=== PATIENT | female | born 1955 | race Caucasian/White ===

== ENCOUNTER 2023-09-27 18:36 | Emergency (ER) | payer OTHER, SELFPAY ==
[2023-09-27 18:42] VITALS: BP 116/69
--- NOTE | 2023-09-27 21:27 | ED.GENMED ---
History of Present Illness
General
Chief Complaint: Fall
Source: patient, spouse and other (Family friend/neighbor)
Exam Limitations: dementia
Time Seen by Provider: 09/27/23 18:57
Nursing documentation reviewed up to this point in time: agreed with
Travel History
Have you had any contact with someone who has COVID-19?: No
Do you have any symptoms of coronavirus? Fever > 100 degrees, chills, cough, shortness of breath, sore throat, loss of taste or smell, muscle aches, or headache?: No
History of Present Illness
History of Present Illness:
68-year-old female with a history of diabetes and dementia presents from home with her with whom she lives for evaluation after fall. Patient is a very poor historian with limited insight due to her dementia and cannot provide meaningful
history. She is occasionally aggressive and tangential. Her says that this is her baseline. Apparently they were going on a walk today and patient lost her balance and fell off the curb. She apparently struck the right side of her face
on the ground. There was no reported loss of consciousness. went to the door of a next-door neighbor as he has a history of stroke and was unable to help her up. Neighbor called EMS to bring patient to the hospital. Patient denies any
specific complaints on review of systems including headache, neck pain, chest pain, back pain, pain in her extremities. She is ambulatory in the ED. She is not on any blood thinners.
Review of Systems
Review of Systems
Unable to obtain full review of systems at this time due to: dementia
All Other Systems: Not applicable
Phy Exam
Physical Exam
Physical Exam:
General: Awake, alert, oriented x2; occasionally verbally aggressive/confrontational which is apparently her baseline; no acute distress
Head: Normocephalic, patient has some very mild ecchymosis in the right maxillary region; no cephalhematoma
Eyes: Conjunctiva normal, EOMI, pupils equal round reactive to light bilaterally
Throat: Airway intact, handling secretions, mouth atraumatic
Neck: Trachea midline, no cervical spine tenderness
Back: No tenderness in the thoracic or lumbar spine
Lungs: Breathing comfortably not in distress
Heart: Regular rate
Abd: Soft, non distended, nontender
Neuro: Cranial nerves grossly intact, speech fluid, ambulatory with steady gait
Skin: Minor abrasion to the dorsum of the right hand as well as to the right elbow
Extremities: Minor abrasions as above but no significant ecchymosis or swelling in the extremities and no deformity; she allows for full active range of motion in all joints of the upper and lower extremities without apparent discomfort and is
ambulatory, weightbearing in the emergency room without pain; she has good pulses in all extremities
Scores
Heart Failure Risk
Heart Failure Risk Score: Not Applicable
Heart Score for Chest Pain Patients
STEMI patient?: Not applicable
Withdrawal Assessment of Alcohol
Withdrawal Assessment Completed?: Not applicable
Course
Orders/Labs/Results
Orders:
Orders
09/27/23 19:25
Tetanus/Diphth/Acelpertussis [Adacel] 0.5 ml IM .ONCE ONE
Vital Signs
Initial and Last Documented VS:
Initial Vital Signs
Temp Pulse Resp BP Pulse Ox
36.8 C 63 16 116/69 98
09/27/23 18:42 09/27/23 18:42 09/27/23 18:42 09/27/23 18:42 09/27/23 18:42
Last Documented Vital Signs
Temp Pulse Resp BP Pulse Ox
36.8 C 63 16 116/69 98
09/27/23 18:42 09/27/23 18:42 09/27/23 18:42 09/27/23 18:42 09/27/23 18:42
MDM/Problems Addressed
Differential Diagnosis Includes:
Facial fracture, facial contusion
MDM/Problems Addressed:
68-year-old female with history of dementia presents after mechanical trip and fall today. No loss of consciousness and behaving at her baseline per . She has some bruising on the right side of her face and abrasion to the right hand and
elbow. No other signs of serious trauma. Unsure of last tetanus. Initial plan was for CT head and cervical spine to rule out any facial fracture or serious injuries given her age as well as to update her tetanus shot. No clear indication for
x-ray of the elbow despite minor abrasion she has full range of motion and no reproducible tenderness. Unfortunately patient became rather agitated and refused to go for imaging and refused tetanus shot. I had a long discussion with the
�patient has poor insight and in my judgment does not have decision-making capacity to refuse imaging and request discharge. I spoke to the and offered to provide some sedation to the patient to facilitate imaging but he does not
feel this is necessary. He says that this is normal behavior for her. He feels comfortable foregoing imaging at this point and taking patient home and keeping a close eye on her and if anything changes he will call the medics to bring her back to
the hospital. Using shared decision making patient was discharged without imaging.
Chronic conditions affecting care:
Dementia
*Pulse Oximetry
Patient hypoxic: no
*Critical Care Note
Total Time (30-74mins, 75-104mins- exclusive of procedures): Not Applicable
Data Reviewed
Source: patient, family and other (Neighbor/friend)
Prescriptions/Medications Considered But Not Given:
Considered sedation to facilitate CT as above
Further Testing Considered But Not Given:
Considered CT head and cervical spine as above
Patient Management
Escalation/DeEscalation of care consider admission/obs:
Discharge using shared decision making as above
ED Attending Note
-
Portions of this chart may have been created with voice recognition software.� Occasional wrong word or��sound alike� substitutions may have occurred due to the inherent limitations of voice recognition software.
Discharge Plan
Departure
Patient Disposition: Home (Routine Discharge)
Date of Disposition: 09/27/23
Time of Disposition: 20:35
Patient with high blood pressure during this ER visit?: No
Discharge Problem:
Contusion of face, Abrasion
Instructions: Contusion (DC), Skin Abrasions (DC)
Referrals:
Elfego Cadena DO [Family Provider] -
Activity Restrictions/Additional Instructions:
Thank you for visiting the Emergency Department at [facility].
1. Please schedule a follow up appointment as directed. Call first thing tomorrow morning to make an appointment.
2. If indicated, please take your medications as instructed and indicated on discharge paperwork.
3. If any of your symptoms do not improve, or persist, or become more severe within 6-12 hours, please return to the emergency department for further care.
4. Please return to the emergency department if you develop a headache, neck pain/stiffness, fever greater than 100.4F, chest pain, shortness of breath, persistent nausea, vomiting, slurred speech, difficulty walking, numbness/tingling, weakness,
signs of infection or any other symptoms that are worrisome to you.
Please call [phone] if you have any questions.
Interventions
Interventions:
*Risk Screen - Suicide Last Done: 09/27/23 19:03
*Neglect/Abuse Screening Last Done: 09/27/23 19:03
*Nursing Disposition Last Done: 09/27/23 20:38
ED-Musculoskeletal Assessment Last Done: 09/27/23 19:03
ED- Neurological Assessment Last Done: 09/27/23 19:03
ED-Skin Assessment Last Done: 09/27/23 19:03
Discharge Date and Time
Discharge Date/Time: 09/27/23 20:39
Print Language: NIUEAN
== END 2023-09-27 20:39 | disposition home or self-care (01) ==
LOC: EMR 18:36
PROVIDERS: EMERGENCY PHYSICIAN Emergency Medicine; FAMILY PHYSICIAN Family Medicine
DX: S00.83XA Contusion of other part of head, initial encounter (principal); S60.511A Abrasion of right hand, initial encounter; S50.311A Abrasion of right elbow, initial encounter; W19.XXXA Unspecified fall, initial encounter; F03.90 Unspecified dementia, unspecified severity, without behavioral disturbance, psychotic disturbance, mood disturbance, and anxiety; E11.9 Type 2 diabetes mellitus without complications; Z86.73 Personal history of transient ischemic attack (TIA), and cerebral infarction without residual deficits
CPT/HCPCS: 99282; 90715

== ENCOUNTER 2023-10-18 09:30 | Inpatient (IN) | payer OTHER, SELFPAY ==
[2023-10-16 11:51] VITALS: BP 117/51
[2023-10-16] MEDS: HALDOL 2 MG IM (12:40)
[2023-10-16] MEDS: ATIVAN 1 MG IM (12:41)
[2023-10-16 13:41] LABS: % Basophils 0.3 % (0-2); % Eosinophils 0.2 % (0-6); % Immature Granulocytes 0.8 % (0-0.5); % Lymphocytes 24.3 % (20.5-51.1); % Monocytes 7.5 % (1.7-9.3); % Neutrophils 66.9 % (42.2-75.2); Absolute Immature Granulocytes 0.1 10^3/uL (0-0.05); Absolute Lymphocytes 2.4 10^3/uL (1.2-3.4); Absolute Monocytes 0.7 10^3/uL (0.1-0.6); Absolute Neutrophils 6.5 10^3/uL (1.4-6.5); Hematocrit 39.6 % (37.0-47.0); Hemoglobin 13.9 g/dL (12.0-16.0); Mean Corp Hgb Conc. 35.1 g/dL (33.0-37.0); Mean Corpuscular Hgb 30.2 pg (27.0-31.0); Mean Corpuscular Volume 86.1 fL (81.0-99.0); Mean Platelet Volume 10.6 fL (7.4-10.4); Nucleated Red Blood Cells % 0 %; Platelet Count 240 10^3/uL (130-400); Red Cell Dist. Width 13.5 % (11.5-14.5); White Blood Cell Count 9.8 10^3/uL (4.8-10.8)
[2023-10-16 13:51] LABS: ALT (SGPT) 25 U/L (0-35); AST (SGOT) 35 U/L (14-36); Albumin 3.9 g/dl (3.5-5.0); Alkaline Phosphatase 74 U/L (38-126); Blood Urea Nitrogen 20 mg/dl (7-17); Calcium 9.9 mg/dl (8.4-10.2); Carbon Dioxide 27 mmol/L (22-30); Chloride 101 mmol/L (98-107); Glucose 144 mg/dl (70-99); Potassium 3.6 mmol/L (3.5-5.1); Sodium 137 mmol/L (135-145); Total Protein 6.6 g/dl (6.3-8.2)
--- NOTE | 2023-10-16 14:16 | CM ---
Cm was consulted regarding patient presenting to emergency room after being found wandering outside her home. CARRIE was out to see patient in her home. CM spoke with Isa Womack . She updated this CM stating that they were out to the
home due to concerns of patient's wander and cognitive decline. Patient's who is her primary care advocate is also suffering from cognitive decline. Isa reports concerns of medication mismanagement, and self neglect. Patient is incontinent
and reports that he only occasionally checks her diaper. could not report when the patient has had a bath or shower. Patient appears well dressed, but diaper is saturated.
CM went to speak with and patient in room. Patient's became increasingly agitated with patient as she was attempting to get out of the bed. Patient's was yelling at patient. Patient was argumentative with this CM and her
. She was able to be redirected from her attempts to get out of the bed.
CM will await further work up.
--- NOTE | 2023-10-16 14:27 | ED.GENMED ---
History of Present Illness
General
Chief Complaint: Social Service Referral
Source: patient and spouse
Exam Limitations: dementia
Time Seen by Provider: 10/16/23 11:50
Nursing documentation reviewed up to this point in time: agreed with
Travel History
Have you had any contact with someone who has COVID-19?: Unable to Answer
Do you have any symptoms of coronavirus? Fever > 100 degrees, chills, cough, shortness of breath, sore throat, loss of taste or smell, muscle aches, or headache?: Unable to Answer
History of Present Illness
History of Present Illness:
68-year-old female past medical history of dementia and IDDM presenting to the emergency department today after multiple falls at home. She lives with her who also was disabled. She has been dealing with dementia for many years and has
very poor short-term memory. She had a fall 3 weeks ago came to the ER refused assessment at that time and was sent home with the she has had a fall since then as well as today had multiple near falls and was sent to the ER for assessment.
She currently denies any symptoms but has no specific insight and has no memory of the events of today.
Review of Systems
Review of Systems
Allergies reviewed?: Yes
All Other Systems: ROS reviewed and negative except as documented in HPI and ROS
Phy Exam
Physical Exam
Physical Exam:
GENERAL: Alert , in no apparent distress
EYE: pupils equal and reactive
NECK: Supple, no significant adenopathy.
ENT: o/p clr, mmm.
CARDIAC: Regular rate and rhythm .
LUNGS: Clear breath sounds bilaterally, no acute respiratory distress, no wheezes/rales/rhonchi
ABDOMEN: Soft, without focal tenderness, no r/g, no cvat
NEUROLOGICAL: Alert not oriented to person place or time no focal neuro deficits moving extremities
SKIN: Warm and dry, skin intact.
MUSCULOSKELETAL: No edema, well perfused.
PSYCH: Normal and appropriate interaction.
Course
Orders/Labs/Results
Orders:
Orders
10/16/23 11:50
CT Cervical Spine W/o Iv Contr Urgent
Comment:
Reason For Exam: fall neck pain
CT Head W/o Iv Contrast Urgent
Comment:
Reason For Exam: fall hit head
10/16/23 11:51
Urinalysis Reflex To Culture Urgent
10/16/23 12:04
Case Management Consult ONCE
Case Management Consult: Discharge Planning
10/16/23 12:26
Haloperidol Lactate [Haldol] 2 mg IM NOW STA
Lorazepam [Ativan] 1 mg IM NOW STA
10/16/23 13:33
CBC/With Diff [Complete Blood Count/With Diff] Urgent
CMP [Comprehensive Metabolic Panel] Urgent
Abnormal Lab Results
10/16/23
13:33
MPV 10.6 H fL
(7.4-10.4)
Abs Immat Gran (auto) 0.1 H 10^3/uL
(0-0.05)
Absolute Monos (auto) 0.7 H 10^3/uL
(0.1-0.6)
Immature Gran % 0.8 H %
(0-0.5)
BUN 20 H mg/dl
(7-17)
Creatinine 1.2 H mg/dL
(0.6-1.0)
Glucose 144 H mg/dl
(70-99)
10/16/23 13:33
10/16/23 13:33
Vital Signs
Initial and Last Documented VS:
Initial Vital Signs
Temp Pulse Resp BP Pulse Ox
96.8 F L 71 18 117/51 96
10/16/23 11:51 10/16/23 11:51 10/16/23 11:51 10/16/23 11:51 10/16/23 11:51
Last Documented Vital Signs
Temp Pulse Resp BP Pulse Ox
96.8 F L 71 18 117/51 96
10/16/23 11:51 10/16/23 11:51 10/16/23 11:51 10/16/23 11:51 10/16/23 11:51
MDM/Problems Addressed
MDM/Problems Addressed:
68-year-old female presenting to the emergency today with concerns after multiple falls over the past few weeks. Has bruising to her face but denies any current symptoms at this time. Patient initially refusing treatment but patient does not have
capacity due to her advanced dementia concern this patient was given Haldol and Ativan and CT labs were obtained. CT scan showing potential chronic finding for previous stroke to the left side frontal lobe no emergent or acute findings labs without
acute abnormalities. Further discussion with the and does not feel safe with patient going home considering her dementia frequent falling recently plan to admit for potential placement assessment.
*Critical Care Note
Total Time (30-74mins, 75-104mins- exclusive of procedures): Not Applicable
ED Attending Note
-
Portions of this chart may have been created with voice recognition software.� Occasional wrong word or��sound alike� substitutions may have occurred due to the inherent limitations of voice recognition software.
Discharge Plan
Departure
Patient Disposition: Admit
Date of Disposition: 10/16/23
Time of Disposition: 17:07
Admit to: Med/Surg
Admit to doctor: Stephon
Presentation/result/management discussed w/ accepting MD/DO: Hospitalist
Patient with high blood pressure during this ER visit?: No
Condition: Good
Covid-19: Not Applicable
Discharge Problem:
Ambulatory dysfunction, Left frontal lobe lesion
Referrals:
UNKNOWN - PT DOES,NOT KNOW [Family Provider] -
Interventions
Interventions:
*Risk Screen - Suicide Last Done: 10/16/23 11:46
*General Assessment Last Done: 10/16/23 11:46
*Neglect/Abuse Screening Last Done: 10/16/23 11:46
ED- Fall Risk Assessment Last Done: 10/16/23 11:57
*ED COVID-19 Vaccine History Last Done: 10/16/23 11:46
ED-Psychological Assessment Last Done: 10/16/23 11:54
Discharge Date and Time
Print Language: HUNGARIAN
--- NOTE | 2023-10-16 15:06 | CM ---
Addendum entered by Nelsy Foy RN 10/16/23 15:25:
CM was updated by ED PA that patient will be admitted. Patient's remains undecided on discharge plan. CM advised patient my need STR. Patient's understands and is relieved that patient is being admitted.
CM updated Isa at aging.
Original Note:
CM spoke with patient's regarding placement. Patient's was tearful and expressed that he feel overwhelmed with her care and his own. He was confused regarding the care that patient is receiving in the home. He stated that he was
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
Patient's stated that he wanted to think about placement and was asking if she could be placed in [place]. CM advised that may be a long-term plan, but patient may need SNF prior to establishing lobsterman placement options.
CM will return to discuss.
--- NOTE | 2023-10-16 19:02 | HPS.HSE ---
Family Physician
-
Family Physician: NOT KNOW UNKNOWN - PT DOES
Chief Complaint
-
Multiple Falls at home
History of Present Illness
68-year-old female past medical history of dementia and IDDM presented to the emergency department today after multiple falls at home. Patient was a poor historian so much of the history was obtained from the ER provider note. Patient lives with her
who also was disabled. Patient had a fall 3 weeks ago came to the ER refused assessment at that time and was sent home with her she has had a fall since then as well as today had multiple near falls and was sent to the ER for
assessment. She currently denied any symptoms but has no specific insight and has no memory of the events of today.
Medical History
Past Medical History
Past Medical History: Reports Other (As per HPI above)
Past Surgical History: Reports Other (Patient unable to say due to dementia)
Additional Past Surgical History:
Patient unable to say
Social History
Unable to obtain full social history at this time due to: Dementia
Family History
Family History: Not pertinent
Allergies / Home Medications
Allergies reflects when Allergies were last updated in [facility].
Home Medications with original date entered in [facility]
Allergy/Medication List:
Allergies
Allergy/AdvReac Type Severity Reaction Status Date / Time
No Known Allergies Allergy Unverified 09/27/23 18:41
Home Medications
levothyroxine 75 mcg tablet 75 mcg PO DAILY 10/16/23
metformin 500 mg tablet 500 mg PO BIDWMEAL 10/16/23
Review of Systems
-
Unable to obtain full review of systems at this time due to: Dementia
Physical Exam
Vital Signs
Vital Signs
Temp Pulse Resp BP Pulse Ox
96.8 F L 71 18 117/51 96
10/16/23 11:51 10/16/23 11:51 10/16/23 11:51 10/16/23 11:51 10/16/23 11:51
Physical Exam
General: No Apparent Distress
HEENT: NormoCephalic and Moist mucous membranes
Respiratory: Clear
Cardiac: S1/S2 and Regular Rhythm
GI: Soft, Non Tender and Normal Bowel Sounds
Musculoskeletal: No Cyanosis and No Edema
Skin: Warm and Dry
Neuro: Awake, Alert and Other (Spontaneously moves all extremities. PERRL. Unable to cooperate with a full neurological exam.)
Psych: Calm, Confused and Apparent Dementia
Laboratory Results
-
10/16/23 13:33
10/16/23 13:33
Laboratory Results
Total Bilirubin 1.0 mg/dl (0.2-1.3) 10/16/23 13:33
AST 35 U/L (14-36) 10/16/23 13:33
ALT 25 U/L (0-35) 10/16/23 13:33
Alkaline Phosphatase 74 U/L (38-126) 10/16/23 13:33
Impression/Plan
-
Assessment/Plan
Multiple Falls at Home
-Check Vitamin B12, TSH
-Orthostatic vital signs
-Echocardiogram
-Telemetry
-CT Head noted, rule out acute stroke with Brain MRI
Elevated Creatinine -- VERONIKA vs. CKD
-IV fluids Normal Saline 75 cc/hr
-Bladder scans
Type 2 Diabetes Mellitus
-Hold Metformin with elevated creatinine
-Accuchecks and Insulin Sliding Scale
Hyperlipidemia
-No home meds listed
Dementia
-Speech consult
Hypothyroidism
-Continue Levothyroxine
[2023-10-16 19:03] VITALS: BP 136/59
[2023-10-16 21:06] VITALS: BP 102/54
[2023-10-16 21:29] VITALS: BP 118/54
[2023-10-16] MEDS: NSS 1000 IV (22:29)
[2023-10-16] MEDS: HEPARIN 5000 UNITS SC (22:29)
[2023-10-16 23:11] LABS: Troponin I 0.012 ng/ml
[2023-10-17] VITALS: BP 110/52
[2023-10-17 04:30] VITALS: BP 129/61
[2023-10-17 04:30] LABS: % Basophils 0.6 % (0-2); % Eosinophils 1.2 % (0-6); % Immature Granulocytes 0.5 % (0-0.5); % Lymphocytes 43.1 % (20.5-51.1); % Neutrophils 44.6 % (42.2-75.2); Absolute Basophils 0.1 10^3/uL (0-0.2); Absolute Eosinophils 0.1 10^3/uL (0-0.7); Absolute Lymphocytes 3.6 10^3/uL (1.2-3.4); Absolute Monocytes 0.8 10^3/uL (0.1-0.6); Absolute Neutrophils 3.7 10^3/uL (1.4-6.5); Hematocrit 38.5 % (37.0-47.0); Hemoglobin 13.5 g/dL (12.0-16.0); Mean Corp Hgb Conc. 35.1 g/dL (33.0-37.0); Mean Corpuscular Hgb 30.3 pg (27.0-31.0); Mean Corpuscular Volume 86.5 fL (81.0-99.0); Nucleated Red Blood Cells % 0 %; Platelet Count 228 10^3/uL (130-400); Red Blood Cell Count 4.45 10^6/uL (4.20-5.40); Red Cell Dist. Width 13.6 % (11.5-14.5); White Blood Cell Count 8.3 10^3/uL (4.8-10.8)
[2023-10-17 04:38] LABS: Urine Albumin Trace (Neg - Trace); Urine Bilirubin 1+ (Negative); Urine Character Slightly Cloudy (Clear); Urine Color Yellow; Urine Glucose Negative (Negative); Urine Ketone 1+ (Negative); Urine Leukocyte Negative (Negative); Urine Nitrite Negative (Negative); Urine Occult Blood Negative (Negative); Urine Specific Gravity 1.025 (<1.030); Urine Urobilinogen 1+ (Neg - 1+)
[2023-10-17 04:45] LABS: Blood Urea Nitrogen 17 mg/dl (7-17); Calcium 9.3 mg/dl (8.4-10.2); Carbon Dioxide 27 mmol/L (22-30); Chloride 105 mmol/L (98-107); Glucose 133 mg/dl (70-99); Potassium 3.1 mmol/L (3.5-5.1); Sodium 137 mmol/L (135-145); eGFR > 60.00
[2023-10-17 04:57] LABS: Troponin I < 0.012 ng/ml
--- NOTE | 2023-10-17 05:04 | EDRN ---
Pt. has been in sinus bradycardia w/ HR ranging from 40-52 while sleeping. When awake, pt. is asymptomatic w/ HR 50s-60s. Admitting team is aware, will continue to monitor.
[2023-10-17 05:44] LABS: TSH 8.74 uIU/ml (0.47-4.68)
[2023-10-17] MEDS: SYNTHROID PO (05:52)
[2023-10-17 06:03] LABS: Vitamin B12 840 pg/ml (239-931)
[2023-10-17] MEDS: HEPARIN SC (08:20)
[2023-10-17] MEDS: KCL ELIXIR 40 MEQ PO (10:38)
--- NOTE | 2023-10-17 10:40 | CM ---
Addendum entered by Nelsy Foy RN 10/17/23 11:35:
VIOLETA updated Isa at [facility]. SHe is requesting discharge documents be faxed to her at [phone].
Addendum entered by Nelsy Foy RN 10/17/23 11:11:
[facility] has accepted.
Addendum entered by Nelsy Foy RN 10/17/23 10:41:
CM left message for to discuss discharge planning.
Original Note:
CM reviewed medical records. CM requested PT evaluation. CM sent preliminary referral to [facility] for placement. CM awaiting acceptance.
[2023-10-17 10:56] LABS: Troponin I < 0.012 ng/ml
--- NOTE | 2023-10-17 11:31 | PTOTSP ---
ST Acute Care Evaluation
Pt currently presents with oral, pharyngeal, and esophageal phases that are WFL for all PO intake. No overt s/s of penetration or aspiration observed at bedside. Pt would benefit from PCT assistance for tray set-up and verbal encouragement for PO
intake. Pt would also benefit from a nutrition consult due to reported poor PO intake and significant recent weight loss.
Pt also presents with at least a moderate cognitive linguistic impairment in the setting of Alzheimer's dementia. Pt can answer simple questions and follow simple directions. Pt can occasionally express simple ideas in short phrases, but more often
than not, her verbalizations lack content and are difficult to follow without context. Pt is only oriented to self at this time, and she could not provide her .
Recommendations:
- Continue with REGULAR SOLIDS and THIN LIQUIDS with meds as tolerated.
- Tray set-up and verbal encouragement for all PO intake.
- General aspiration precautions: Only feed when fully awake/alert, HOB upright for all PO intake, encourage slow intake.
- TOLL BRIDGE ATTENDANT will f/u 1x to ensure diet tolerance.
- Recommending nutrition consult given poor PO intake and recent 15lb weight loss.
- TOLL BRIDGE ATTENDANT will continue to follow for further cognitive linguistic assessment/intervention.
- Given pt's current cognitive linguistic presentation as well as pt's 's disability, SNF to LTC is recommended upon discharge for both of their safety.
[2023-10-17 11:41] VITALS: BP 127/89
[2023-10-17] MEDS: ATIVAN 0.25 MG IV (12:25)
[2023-10-17] MEDS: NSS (PRESERVATIVE FREE) 0.125 ML IV (12:25)
--- NOTE | 2023-10-17 13:00 | CM ---
Cm spoke with patient's who is agreeable to [facility] when patient is medically cleared. Patient will need authorization
[facility] Anderson NPI's
[id number]
Dr. Kuhn
[id number]
[2023-10-17] MEDS: ZYPREXA 2.5 MG IM (14:43)
[2023-10-17] MEDS: STERILE WATER FOR INJECTION 2.10000000000000009 ML IM (14:44)
--- NOTE | 2023-10-17 16:08 | W.PN.HOSP.TC ---
Today's Communication/Plan
-
Follow-up Brain MRI
PT/OT
Placement
Assessment / Plan
Assessment / Plan
Physical Exam
General: No Apparent Distress
HEENT: Normocephalic and Moist mucous membranes
Respiratory: Clear
Cardiac: S1/S2 and Regular Rhythm
GI: Soft, Non Tender and Normal Bowel Sounds
Musculoskeletal: No Cyanosis and No Edema
Skin: Warm and Dry
Neuro: Awake, Alert and Other (Spontaneously moves all extremities. PERRL. Unable to cooperate with a full neurological exam.)
Psych: Calm, Confused and Apparent Dementia

Assessment/Plan
Multiple Falls at Home
-Vitamin B12 WNL
-TSH 8.74
-Orthostatic vital signs when feasible
-Echocardiogram unremarkable
-Telemetry
-CT Head noted
-Follow-up brain MRI
Elevated Creatinine -- VERONIKA vs. CKD -- RESOLVED
-Completed IV fluids Normal Saline 75 cc/hr
-Bladder scans
Type 2 Diabetes Mellitus
-Hold Metformin with elevated creatinine on admission
-Accuchecks and Insulin Sliding Scale
Hyperlipidemia
-No home meds listed
Dementia
-Speech consult
Hypothyroidism
-Continue Levothyroxine
DVT Prophylaxis: Heparin SUBQ
Anticipated Discharge: > 48 hours
Subjective/Interval History
-
Date of Service: October 17, 2023
Patient was seen and examined. She was on and off agitated at times.
Objective Data
-
Labs:
Laboratory Results
10/17/23
04:22
WBC 8.3
Hgb 13.5
Hct 38.5
Plt Count 228
Sodium 137
Potassium 3.1 L
Chloride 105
Carbon Dioxide 27
BUN 17
Creatinine 1.0
Glucose 133 H
Calcium 9.3
Vital Signs:
Vital Signs
Temp Pulse Resp BP Pulse Ox
97.7 F 57 15 127/89 100
10/17/23 11:41 10/17/23 11:41 10/17/23 11:41 10/17/23 11:41 10/17/23 11:41
--- NOTE | 2023-10-17 16:14 | PTCARENOTE ---
Assumed care at 0700. Oriented to self only. Confused conversation at times. Does not follow all commands. x1 dose of Ativan given @ 12:25 as MRI premedication, then MRI delayed. Patient required x1 dose IM Zyprexa at 1443 d/t unable to be directed,
resisting staff, high risk for injury to self. Patient went to MRI at ~1500. After patient returned from MRI, restless but redirectable. ED no delay report tubed to [address].
[2023-10-17 17:15] VITALS: BP 138/64
[2023-10-17 17:28] LABS: Glucose - Point of Care 173 mg/dl (70-99)
[2023-10-17 19:59] VITALS: BP 121/51
[2023-10-17] MEDS: HEPARIN 5000 UNITS SC (20:15)
[2023-10-17 23:52] LABS: Glucose - Point of Care 178 mg/dl (70-99)
[2023-10-18] MEDS: DESENEX/MITRAZOL/ZEASORB 1 APPLIC TOPICAL ×3 (05:24→22:24)
[2023-10-18] MEDS: SYNTHROID 75 MCG PO (05:25)
[2023-10-18 05:35] VITALS: BP 140/71; BP 142/64; PULSE 89; PULSE 92
--- NOTE | 2023-10-18 05:52 | PTCARENOTE ---
Pt AAOX self only.Noncomplaint with care at times,agitated when trying to get things done,refusing care. Pt on bed alarm, trying to get up, pulling on telemetry leads. Unable to put scds on pt, as pt high fall risk & constantly getting up. 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
Marsha made aware of pt refusing care.Plan of care continued with pt.
[2023-10-18 07:51] LABS: % Basophils 0.6 % (0-2); % Eosinophils 1.2 % (0-6); % Immature Granulocytes 0.6 % (0-0.5); % Lymphocytes 43.6 % (20.5-51.1); % Monocytes 9.8 % (1.7-9.3); % Neutrophils 44.2 % (42.2-75.2); Absolute Eosinophils 0.1 10^3/uL (0-0.7); Absolute Monocytes 0.7 10^3/uL (0.1-0.6); Mean Corp Hgb Conc. 33.3 g/dL (33.0-37.0); Mean Corpuscular Volume 90.1 fL (81.0-99.0); Mean Platelet Volume 11.2 fL (7.4-10.4); Nucleated Red Blood Cells % 0 %; Platelet Count 227 10^3/uL (130-400); Red Blood Cell Count 4.66 10^6/uL (4.20-5.40); Red Cell Dist. Width 13.7 % (11.5-14.5); White Blood Cell Count 6.9 10^3/uL (4.8-10.8)
[2023-10-18 08:06] LABS: Glucose - Point of Care 143 mg/dl (70-99)
[2023-10-18] MEDS: HEPARIN 5000 UNITS SC ×2 (08:21→22:27)
[2023-10-18 08:35] LABS: Blood Urea Nitrogen 16 mg/dl (7-17); Calcium 9.6 mg/dl (8.4-10.2); Carbon Dioxide 30 mmol/L (22-30); Chloride 102 mmol/L (98-107); Glucose 142 mg/dl (70-99); Potassium 4.1 mmol/L (3.5-5.1); Sodium 137 mmol/L (135-145); eGFR > 60.00
[2023-10-18 08:43] VITALS: BP 129/58
--- NOTE | 2023-10-18 09:32 | W.PN.HOSP.TC ---
Today's Communication/Plan
-
Recent bleeding noted on MRI brain without contrast
Consulted neurosurgery
MRI Brain WITH contrast ordered to check for any underlying enhancing lesion
Assessment / Plan
Assessment / Plan
Physical Exam
General: No Apparent Distress
HEENT: Normocephalic and Moist mucous membranes
Respiratory: Clear
Cardiac: S1/S2 and Regular Rhythm
GI: Soft, Non Tender and Normal Bowel Sounds
Musculoskeletal: No Cyanosis and No Edema
Skin: Warm and Dry
Neuro: Awake, Alert and Other (Spontaneously moves all extremities. PERRL. Unable to cooperate with a full neurological exam.)
Psych: Calm, Confused and Apparent Dementia

Assessment/Plan
Multiple Falls at Home
Left frontal lesion with surrounding gradient-echo hypointensity suggestive of subacute hemorrhage
Concern for previous intracerebral hemorrhage
-Vitamin B12 WNL
-TSH 8.74
-Orthostatic vital signs when feasible
-Echocardiogram unremarkable
-Telemetry
-CT Head noted
-MRI brain (without contrast) results noted
-Neurosurgery consulted, recommendations appreciated
-Ordered MRI brain WITH contrast to check for any underlying enhancing lesion
-Follow-up MRI likely in 6 to 8 weeks to ensure that once the blood is cleared, there is no occult lesion underneath this hemorrhage --> as per neurosurgery
-Okay for chemical DVT prophylaxis.
-However HOLD on any therapeutic anticoagulant or antiplatelet medications
Agitation
-Patient has received Zyprexa
Elevated Creatinine -- VERONIKA vs. CKD -- RESOLVED
-Completed IV fluids Normal Saline 75 cc/hr
-Bladder scans
Type 2 Diabetes Mellitus
-Hold Metformin with elevated creatinine on admission
-Accuchecks and Insulin Sliding Scale
Hyperlipidemia
-No home meds listed
Dementia
-Speech consult
Hypothyroidism
-Continue Levothyroxine
DVT Prophylaxis: Lovenox
Anticipated Discharge: > 48 hours
Subjective/Interval History
-
Date of Service: October 18, 2023
Patient was seen and examined. She denied any new symptoms or complaints. She was restless, agitated at times however.
Objective Data
-
Labs:
Laboratory Results
10/18/23
07:11
WBC 6.9
Hgb 14.0
Hct 42.0
Plt Count 227
Sodium 137
Potassium 4.1 D
Chloride 102
Carbon Dioxide 30
BUN 16
Creatinine 1.0
Glucose 142 H
Calcium 9.6
Vital Signs:
Vital Signs
Temp Pulse Resp BP Pulse Ox
97.6 F 59 20 129/58 99
10/18/23 08:43 10/18/23 08:43 10/18/23 08:43 10/18/23 08:43 10/18/23 08:43
I&O
10/17/23 10/18/23 10/19/23
06:59 06:59 06:59
Intake Total 240 / 240
Balance 240 / 240
--- NOTE | 2023-10-18 10:57 | PTCARENOTE ---
Pt placed in hilda-chair at nurses station due to repeated attempts to get out of bed.
--- NOTE | 2023-10-18 11:26 | CM ---
Addendum entered by Lupe Sin 10/18/23 12:10:
Spoke with spouse bedside.
While discussing home situation, he stated he also has some difficulties with memory.
Explained that patient may be difficult to place due to the medsitter being in place and will expand search.
Spouse unsure if he will be able to manage patient at home.
Discussed memory care, alf care and skilled rehab, however spouse admitted he probablyy wont remember.
Spouse agreeable to expanding bed search.
Spouse stated he just had a meeting with Isa from [facility].
TC back from [facility], she spoke with spouse and also has concerns.
There is no other family involved, a neighbor assists but is not home.
Cm will update Isa with d/c plans once bed found.
Addendum entered by Lupe Sin 10/18/23 11:41:
TC to Isa Womack from [facility], left .
Original Note:
Patient seen bedside.
patient in hilda chair with med-sitter.
Patient for skilled placement and was accepted by [facility].
TC to [facility] to discuss, await TCB.
Plan: skilled placement when bed available
[2023-10-18 12:35] LABS: Glucose - Point of Care 219 mg/dl (70-99)
[2023-10-18 15:33] VITALS: BP 128/61
--- NOTE | 2023-10-18 17:15 | CON.NS ---
Consultation
-
Date/Time Consultation Performed: 17:15; 10/18/2023
Performing Provider: Nir
Chief Complaint
History of Present Illness
This is a neurosurgical consultation on a 68-year-old female that presented on 10/16/2023 after multiple falls at home. Patient has a past medical history of dementia, and diabetes. It was reported that the patient is a poor historian, and lives
with her , who is also disabled. Patient also had a prior fall 3 weeks ago, and presented to the emergency room on 09/27/2023. At that time, it is noted that she refused assessment and was sent home with her . Patient was admitted for
the diagnosis of multiple falls, and subsequently workup was initiated. She had a brain MRI that was performed, which demonstrates left frontal lesion, consistent with likely subacute hematoma. Neurosurgery consulted for further input. According
to chart review, there is no known history of being on anticoagulants, or antiplatelet agents.
Patient seen and examined. Offers no complaints. Denies any headaches. Is on one-to-one sitter, for confusion.
Review of Systems
-
A 10 point review of systems including constitutional, ENT, cardiovascular, respiratory, GI, , endocrinologic, hematologic, psychiatric, neurologic, musculoskeletal, was performed, was otherwise negative except for stated in HPI.
Medication and Allergies
Home Medications
Home Medications
�Medication �Instructions �Recorded
levothyroxine 75 mcg tablet 75 mcg PO DAILY Thyroid 10/16/23
metformin 500 mg tablet 500 mg PO BIDWMEAL Diabetes 10/16/23
Allergies
Allergies
Allergy/AdvReac Type Severity Reaction Status Date / Time
No Known Allergies Allergy Unverified 09/27/23 18:41
Physical Exam
-
Exam:
Awake, alert, conversant.
Confused
Multiple areas of ecchymosis along the right aspect of face, subacute in nature.
Moves all extremities spontaneously and symmetrically.
Intermittently follows commands
Neck is supple
Breathing nonlabored
Abdomen is soft
Extremities are warm
MRI of the brain with contrast was performed, on 10/16/2022 which demonstrates an area of T1 hyperintensity in the left frontal lobe, measuring approximately 1.7 cm. There is moderate amount of vasogenic edema surrounding this multiloculated lesion.
Lesion does demonstrate to have an area of gradient-echo hypointensity surrounding it consistent with possible hemorrhage.
Problems
-
Problem Status Onset Code
Left frontal lobe lesion G93.9
Ambulatory dysfunction R26.2
Assessment / Plan
-
This is a 68-year-old female who presents with history of having several falls at home. There is demonstrated to be a left frontal lesion with surrounding gradient-echo hypointensity suggestive of subacute hemorrhage. There is also scattered areas
of blooming on gradient echo imaging which may be consistent with previous areas of ICH.
Given her history of several falls in the past, this could be a previous blooming contusion from her falls. However, primary ICH cannot be ruled out. Would recommend MRI of the brain with contrast to ensure that there is no evidence of underlying
enhancing lesion. Additionally, patient will likely require follow-up MRI likely in 6 to 8 weeks to ensure that once the blood is cleared, there is no occult lesion underneath this hemorrhage.
No contraindications to initiating chemical DVT prophylaxis.
Hold on any therapeutic anticoagulant or antiplatelet medications.
Continue metabolic workup for encephalopathy.
[2023-10-18 19:55] VITALS: BP 139/64
[2023-10-18 21:38] LABS: Glucose - Point of Care 128 mg/dl (70-99)
[2023-10-18] MEDS: HEPARIN SC (21:50)
[2023-10-18 23:59] VITALS: BP 141/61
[2023-10-19 04:32] VITALS: BP 111/67
[2023-10-19] MEDS: SYNTHROID 75 MCG PO (05:21)
[2023-10-19 07:00] LABS: % Basophils 0.6 % (0-2); % Eosinophils 1.6 % (0-6); % Immature Granulocytes 0.6 % (0-0.5); % Lymphocytes 43.3 % (20.5-51.1); % Monocytes 9.9 % (1.7-9.3); Absolute Basophils 0.1 10^3/uL (0-0.2); Absolute Eosinophils 0.1 10^3/uL (0-0.7); Absolute Immature Granulocytes 0.1 10^3/uL (0-0.05); Absolute Lymphocytes 3.5 10^3/uL (1.2-3.4); Absolute Monocytes 0.8 10^3/uL (0.1-0.6); Absolute Neutrophils 3.5 10^3/uL (1.4-6.5); Hematocrit 42.5 % (37.0-47.0); Hemoglobin 14.9 g/dL (12.0-16.0); Mean Corp Hgb Conc. 35.1 g/dL (33.0-37.0); Mean Corpuscular Hgb 29.9 pg (27.0-31.0); Mean Corpuscular Volume 85.3 fL (81.0-99.0); Mean Platelet Volume 11.6 fL (7.4-10.4); Nucleated Red Blood Cells % 0 %; Platelet Count 220 10^3/uL (130-400); Red Blood Cell Count 4.98 10^6/uL (4.20-5.40); Red Cell Dist. Width 13.5 % (11.5-14.5)
[2023-10-19 07:05] VITALS: BP 136/64
[2023-10-19 07:51] LABS: Blood Urea Nitrogen 13 mg/dl (7-17); Calcium 9.7 mg/dl (8.4-10.2); Carbon Dioxide 26 mmol/L (22-30); Chloride 104 mmol/L (98-107); Glucose 135 mg/dl (70-99); Potassium 4.2 mmol/L (3.5-5.1); Sodium 137 mmol/L (135-145); eGFR > 60.00
[2023-10-19 07:57] LABS: Glucose - Point of Care 136 mg/dl (70-99)
[2023-10-19] MEDS: DESENEX/MITRAZOL/ZEASORB 1 APPLIC TOPICAL ×2 (08:26→19:54)
[2023-10-19 11:56] VITALS: BP 103/70; BP 142/62; BP 150/98; PULSE 106; PULSE 110; PULSE 56
--- NOTE | 2023-10-19 13:39 | CM ---
Addendum entered by Claudia Caballero 10/19/23 14:44:
CM called to [facility] admissions and left message regarding bed availability and pending PT/OT assessment CM will initiate auth.
Original Note:
Patient out to MRI, patient at bedside, stating that he doesn't have any memory and the he understands that patient is to go to a SNF, [facility] when prompted. Patient is being followed by ORLIN Moss. CM will reachout to [facility] to confirm bed availability when medically appropriate. CM will continue to follow for discharge planning needs.
Plan; SNF
--- NOTE | 2023-10-19 15:02 | W.PN.UPDATE ---
Update Note
Progress Note Update
MRI brain with contrast reviewed. No underlying mass noted.
Will need follow up MRI with and without contrast in 2 months to rule out underlying lesion once hematoma resolved.
Can follow up with neurology/PCP regarding workup for frequent falls.
--- NOTE | 2023-10-19 15:06 | W.PN.HOSP.TC ---
Today's Communication/Plan
-
Placement pending
Assessment / Plan
Assessment / Plan
Physical Exam
General: No Apparent Distress
HEENT: Normocephalic and Moist mucous membranes
Respiratory: Clear
Cardiac: S1/S2 and Regular Rhythm
GI: Soft, Non Tender and Normal Bowel Sounds
Musculoskeletal: No Cyanosis and No Edema
Skin: Warm and Dry
Neuro: Awake, Alert and Other (Spontaneously moves all extremities. Unable to cooperate with a full neurological exam.)
Psych: Calm, Confused and Apparent Dementia

Assessment/Plan
Multiple Falls at Home
Left frontal lesion with surrounding gradient-echo hypointensity suggestive of subacute hemorrhage
Concern for previous intracerebral hemorrhage
-Vitamin B12 WNL
-TSH 8.74
-Orthostatic vital signs when feasible
-Echocardiogram unremarkable
-Telemetry
-CT Head noted
-MRI brain (without contrast) results noted
-Neurosurgery consulted, recommendations appreciated
-Ordered MRI brain WITH contrast -- based on results and discussed with neurosurgery, patient can be discharged and follow-up neurology outpatient
-Follow-up MRI likely in 6 to 8 weeks to ensure that once the blood is cleared, there is no occult lesion underneath this hemorrhage --> as per neurosurgery
-Okay for chemical DVT prophylaxis.
-However HOLD on any therapeutic anticoagulant or antiplatelet medications
Agitation
-Patient has received Zyprexa
Elevated Creatinine -- VERONIKA vs. CKD -- RESOLVED
-Completed IV fluids Normal Saline 75 cc/hr
-Bladder scans
Type 2 Diabetes Mellitus
-Hold Metformin with elevated creatinine on admission
-Accuchecks and Insulin Sliding Scale
Hyperlipidemia
-No home medications listed
Dementia
-Speech consult
Hypothyroidism
-Continue Levothyroxine
DVT Prophylaxis: Lovenox
Anticipated Discharge: 24 - 48 hours
Subjective/Interval History
-
Date of Service: October 19, 2023
Patient was seen and examined. She denied any new symptoms or complaints.
Objective Data
-
Labs:
Laboratory Results
10/19/23
05:55
WBC 8.0
Hgb 14.9
Hct 42.5
Plt Count 220
Sodium 137
Potassium 4.2
Chloride 104
Carbon Dioxide 26
BUN 13
Creatinine 0.9
Glucose 135 H
Calcium 9.7
Vital Signs:
Vital Signs
Temp Pulse Resp BP Pulse Ox
97.8 F 56 18 142/62 96
10/19/23 11:56 10/19/23 11:56 10/19/23 11:56 10/19/23 11:56 10/19/23 13:50
I&O
10/18/23 10/19/23 10/20/23
06:59 06:59 06:59
Intake Total 240 / 240 840 / 840
Balance 240 / 240 840 / 840
[2023-10-19 15:57] VITALS: BP 143/74
[2023-10-19 16:36] LABS: Glucose - Point of Care 105 mg/dl (70-99)
[2023-10-19] MEDS: LOVENOX 40 MG SC (17:30)
[2023-10-19 22:07] LABS: Glucose - Point of Care 137 mg/dl (70-99)
[2023-10-19 23:55] VITALS: BP 135/75
[2023-10-20] MEDS: SYNTHROID 75 MCG PO (05:47)
[2023-10-20] MEDS: DESENEX/MITRAZOL/ZEASORB 1 APPLIC TOPICAL ×2 (08:00→19:40)
[2023-10-20 08:11] LABS: Glucose - Point of Care 164 mg/dl (70-99)
[2023-10-20 08:38] VITALS: BP 124/60
[2023-10-20 09:17] VITALS: BP 108/53; PULSE 74
[2023-10-20 09:58] VITALS: BP 117/63; BP 120/70
[2023-10-20] MEDS: NSS (PRESERVATIVE FREE) 0.125 ML IV (11:39)
[2023-10-20] MEDS: ATIVAN 0.25 MG IV (11:39)
--- NOTE | 2023-10-20 11:46 | CM ---
Addendum entered by Claudia Caballero 10/20/23 15:11:
Patient indicated he may not be in to visit tomorrow, due to not wanting to drive in rain.
Addendum entered by Claudia Caballero 10/20/23 13:50:
Patient here to see patient. Patient resting. Patient provided phone number of neighbor Celsa Acosta who lives on [address] [place] [address] next to them and her phone number is [phone]. With patient request to call Celsa, CM left
VM requesting call back. Per , Celsa helps to take care of them. CM will continue to follow for discharge planning needs.
Original Note:
Patient seen early this am calm with med sitter off. Patient seen by PT/OT and recommendation is for SNF. CM spoke at length with admissions. Per Admissions plan to review patient medical treatment plan and will need auth as soon as admission/bed
confirmed. CM will continue to follow for discharge planning needs.
Plan; SNF;
--- NOTE | 2023-10-20 11:56 | PTCARENOTE ---
Patient agitated, screaming, trying to get out of chair. Pt aggressive towards staff members. Refusing to go back to her room. Dr. Warren notified about patient's behavior via TT. Order received to adm Ativan IV. See MAR. Dr. Warren at
bedside. Plan of care ongoing.
--- NOTE | 2023-10-20 14:59 | CON.MD ---
Consultation - Medical
-
Psychiatric consultation was performed due to agitation and aggression on several occasions in the hospital. Alice Hdez is a 68 y/o woman from [place] who was admitted on 10/16/23 due to a fall with injury to her head. She had been
having multiple falls and presented to the ED 3 weeks ago for a fall but refused evaluation. The chart was reviewed and spoke with SW. Pt. was fast asleep and could not be aroused, likely from a small dose of IV Ativan given just before lunch.
She underwent CT of the head, MRI without contrast 10/16 and then with and without contrast yesterday. Was found to have: 'Grossly stable 1.8 cm subacute left frontal lobe intraparenchymal hematoma. No enhancement. Stable adjacent white matter
edema. Stable evidence of probable old subarachnoid hemorrhage in the bilateral frontal lobes.No new suspicious abnormal parenchymal signal intensity is identified. Axial FLAIR sequence demonstrates stable mild hyperintensity within the
periventricular and deep subcortical white matter, likely related to underlying chronic small vessel ischemic changes.' The recommendation was for outpatient follow-up.
She has a history of dementia for several years of unknown etiology. She has hypothyroidism but per , has not been compliant with either Synthroid or metformin. Her family doctor was Dr. Elfego Cunha, but neither she nor her have
seen him for some time. Does not see an sausage meat trimmer.
Pt. was raised in [place] and went to nursing school there. 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 She has no history of mental illness. says she has never been combative at
home. Has never wondered from the hosue, but does go outside to try to open the car doors in the mornings, but he keeps the car locked for that reason.
FH: Has a sister in [place], [place] who is estranged from her. Her mother had Alzheimers, but uncertain what age dementia began. Pt. has a son in his 30's, but they have not talked to him for many years and does not remember exactly
why. She has one grandson. has a brother and sister but he is estranged from them as well. used to drink, but no longer.
SH: Raised in [place] and went to nursing school there. 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 Live in [place]. Have a close friend and neighbor, Celsa Acosta, who is a
nurse. SW was unable to reach her today. They do not have any services in the home. Use [employer] for groceries, but does drive (he has memory problems as well and walks with a walker). He reports that they have had a good marriage.
Diagnoses: Dementia, type unknown with intermittent behavioral problems
Intracranial Hemorrhage
Hypothyroidism, non-compliant with T4
T2DM, non-compliant with metformin
Plan: I will order risperidone 0.25 mg. at 6 PM which hopefully will not be too sedating. She was very sedated from iv Ativan today and apparently after sedation from MRI's. Will certainly need in-home services and CM has made referral. Friend
may also be a resource. Would use any additional medication very sparingly. Non-pharmacologic measures for orientation and calming should be used.
Psychiatry will Follow.
[2023-10-20 16:14] VITALS: BP 139/69
--- NOTE | 2023-10-20 17:00 | W.PN.HOSP.TC ---
Today's Communication/Plan
-
Off Sitter today
Stabilizing with psych meds as ordered by psychiatry
Fall precautions
Placement pending
Assessment / Plan
Assessment / Plan
Physical Exam
General: No Apparent Distress
HEENT: Normocephalic and Moist mucous membranes
Respiratory: Clear
Cardiac: S1/S2 and Regular Rhythm
GI: Soft, Non Tender and Normal Bowel Sounds
Musculoskeletal: No Cyanosis and No Edema
Skin: Warm and Dry
Neuro: Awake, Alert and Other (Spontaneously moves all extremities. Unable to cooperate with a full neurological exam.)
Psych: Calm, Confused and Apparent Dementia

Assessment/Plan
Multiple Falls at Home
Left frontal lesion with surrounding gradient-echo hypointensity suggestive of subacute hemorrhage
Concern for previous intracerebral hemorrhage
-Vitamin B12 WNL
-TSH 8.74
-Orthostatic vital signs when feasible
-Echocardiogram unremarkable
-Telemetry
-CT Head noted
-MRI brain results noted - based on results and discussed with neurosurgery, patient can be discharged and follow-up neurology outpatient
-Neurosurgery consulted, recommendations appreciated
-Follow-up MRI likely in 6 to 8 weeks to ensure that once the blood is cleared, there is no occult lesion underneath this hemorrhage --> as per neurosurgery note
-Okay for chemical DVT prophylaxis.
-However HOLD on any therapeutic anticoagulant or antiplatelet medications
Agitation
-Patient has received Zyprexa
-Careful with Ativan -- becomes very sedated with it
-Consulted psychiatry, recommendations appreciated
-Risperidone Daily
-Use any additional medication very sparingly. Non-pharmacologic measures for orientation and calming should be used.
Elevated Creatinine -- VERONIKA vs. CKD -- RESOLVED
-Completed IV fluids Normal Saline 75 cc/hr
-Bladder scans
Type 2 Diabetes Mellitus
-Hold Metformin with elevated creatinine on admission
-Accuchecks and Insulin Sliding Scale
Hyperlipidemia
-No home medications listed
Dementia
-Speech consult
Hypothyroidism
-Continue Levothyroxine
DVT Prophylaxis: Lovenox
Anticipated Discharge: 24 - 48 hours
Subjective/Interval History
-
Date of Service: October 20, 2023
Patient was seen and examined. She was agitated earlier today after patient's nurse took her out for a walk.
Objective Data
-
Vital Signs:
Vital Signs
Temp Pulse Resp BP Pulse Ox
97.4 F 70 22 139/69 98
10/20/23 16:14 10/20/23 16:14 10/20/23 16:14 10/20/23 16:14 10/20/23 16:14
I&O
10/19/23 10/20/23 10/21/23
06:59 06:59 06:59
Intake Total 840 / 840 400 / 400
Balance 840 / 840 400 / 400
[2023-10-20 17:09] LABS: Glucose - Point of Care 144 mg/dl (70-99)
[2023-10-20] MEDS: LOVENOX 40 MG SC (18:07)
[2023-10-20 21:17] LABS: Glucose - Point of Care 346 mg/dl (70-99)
[2023-10-20 22:39] LABS: Glucose - Point of Care 297 mg/dl (70-99)
[2023-10-20 23:00] VITALS: BP 93/42
[2023-10-20 23:22] VITALS: BP 98/44
[2023-10-21] MEDS: SYNTHROID 75 MCG PO (04:08)
[2023-10-21 09:10] VITALS: BP 98/57
[2023-10-21] MEDS: DESENEX/MITRAZOL/ZEASORB 1 APPLIC TOPICAL ×2 (09:14→21:03)
[2023-10-21 09:19] LABS: Glucose - Point of Care 208 mg/dl (70-99)
--- NOTE | 2023-10-21 10:28 | W.PN.UPDATE ---
Update Note
Progress Note Update
Patient is calm this am, not agitated or combative. Disoriented to time and place, somewhat drowsy.
She is now on Risperdal 0.25 mg and seemingly responding.
For now I would continue current treatment.
[2023-10-21 12:28] LABS: Glucose - Point of Care 189 mg/dl (70-99)
--- NOTE | 2023-10-21 16:29 | W.PN.HOSP.TC ---
Today's Communication/Plan
-
further adjustment of psych meds as per Psych, with starting dc planning
Assessment / Plan
Assessment / Plan

Assessment/Plan
Multiple Falls at Home
Left frontal lesion with surrounding gradient-echo hypointensity suggestive of subacute hemorrhage
Concern for previous intracerebral hemorrhage
-Vitamin B12 WNL
-TSH 8.74
-Orthostatic vital signs when feasible
-Echocardiogram unremarkable
-Telemetry
-CT Head: 1. Mild asymmetry of decreased attenuation in the frontal lobe on the left compared to the right, age indeterminate. While this could certainly represent an area of previous or chronic infarct, MRI would be much more sensitive in this
regard.
2. No hemorrhage.
3. Moderate volume loss. Mild to moderate leukoaraiosis.
-MRI brain results noted -There is a round mass in the left frontal lobe, with signal intensity characteristics compatible with hematoma, which is likely subacute. Based on CT and MR findings, this is probably in the general timeframe of 14-28 days.
There is mild to moderate adjacent white matter edema but no significant mass effect.
Focal regions of susceptibility blooming additionally in the left frontal lobe, suggesting sclerosis from previous subarachnoid blood. In the inferior left frontal lobe, there are also some additional foci of old intraparenchymal blood in the
inferior left frontal lobe.
In the anterolateral right frontal lobe, susceptibility blooming along sulci, compatible with previous subarachnoid hemorrhage.
based on results and discussed with neurosurgery, patient can be discharged and follow-up neurology outpatient
-Neurosurgery consulted, recommendations appreciated
-Follow-up MRI likely in 6 to 8 weeks to ensure that once the blood is cleared, there is no occult lesion underneath this hemorrhage --> as per neurosurgery note
-Okay for chemical DVT prophylaxis.
-However HOLD on any therapeutic anticoagulant or antiplatelet medications
Agitation
-Patient has received Zyprexa
-Careful with Ativan -- becomes very sedated with it
-Consulted psychiatry, recommendations appreciated
-Risperidone Daily
-Use any additional medication very sparingly. Non-pharmacologic measures for orientation and calming should be used.
Elevated Creatinine -- VERONIKA vs. CKD -- RESOLVED
-Completed IV fluids Normal Saline 75 cc/hr
-Bladder scans
Type 2 Diabetes Mellitus
-Hold Metformin with elevated creatinine on admission
-Accuchecks and Insulin Sliding Scale
Hyperlipidemia
-No home medications listed
Dementia
-Speech consult
Hypothyroidism
-Continue Levothyroxine
DVT Prophylaxis: Lovenox
As per Claudia Caballero CM plan for SNF at time of dc
Anticipated Discharge: > 48 hours
Subjective/Interval History
-
Date of Service: October 21, 2023
Awake, calm
Objective Data
-
Vital Signs:
Vital Signs
Temp Pulse Resp BP Pulse Ox
98.5 F 90 16 98/57 96
10/21/23 09:10 10/21/23 09:10 10/21/23 09:10 10/21/23 09:10 10/21/23 09:10
I&O
10/20/23 10/21/23 10/22/23
06:59 06:59 06:59
Intake Total 400 / 400 730 / 730
Balance 400 / 400 730 / 730
Review of Systems
-
Unable to obtain full review of systems at this time due to: Dementia
History Source: Coordinated Provider
Constitutional: Denies Fever
EENT: Reports No Symptoms Reported
Respiratory: Reports No Symptoms
Cardiac: Reports No Symptoms
Abdomen/GI: Reports No Symptoms
Physical Exam
-
General: Well Developed, Well Nourished and No Apparent Distress
HEENT: Normocephalic, Atraumatic and Moist Mucous Membranes
Respiratory: Clear to Auscultation; Negative Wheezes, Rales or Rhonchi
Cardiac: Regular Rhythm and S1/S2
GI: Soft, Nontender and Nondistended
Musculoskeletal: No Clubbing, No Cyanosis and No Edema
Neuro: Awake and Alert; Negative Oriented
[2023-10-21 16:33] VITALS: BP 105/55
[2023-10-21 16:34] LABS: Glucose - Point of Care 129 mg/dl (70-99)
[2023-10-21] MEDS: RISPERDAL 0.25 MG PO (16:50)
[2023-10-21] MEDS: LOVENOX 40 MG SC (16:50)
[2023-10-21 22:01] LABS: Glucose - Point of Care 121 mg/dl (70-99)
[2023-10-21 23:40] VITALS: BP 127/63
[2023-10-22] MEDS: SYNTHROID 75 MCG PO (06:15)
[2023-10-22 07:25] VITALS: BP 150/95
[2023-10-22 07:26] LABS: Glucose - Point of Care 128 mg/dl (70-99)
[2023-10-22] MEDS: DESENEX/MITRAZOL/ZEASORB TOPICAL (09:16)
[2023-10-22 11:46] LABS: Glucose - Point of Care 204 mg/dl (70-99)
--- NOTE | 2023-10-22 12:58 | W.PN.UPDATE ---
Update Note
Progress Note Update
Pt seen, reviewed with olivia. Pt alert, calm, resting in bed. Pt oriented to self only, not able to have any coherent conversation due to dementia. No agitation. Tolerating Risperidone, no side effects evident.
Imp: Dementia, advanced, with behavior disturbance- improved on Risperidone 0.25 mg pm
Rec: continue Risperidone current dose at 1600
Psychiatry will sign off; please re-consult for any new concerns
--- NOTE | 2023-10-22 14:56 | W.PN.HOSP.TC ---
Today's Communication/Plan
-
awaiting dispo arrangements
Assessment / Plan
Assessment / Plan

Assessment/Plan
Multiple Falls at Home
Left frontal lesion with surrounding gradient-echo hypointensity suggestive of subacute hemorrhage
Concern for previous intracerebral hemorrhage
-Vitamin B12 WNL
-TSH 8.74
-Orthostatic vital signs when feasible
-Echocardiogram unremarkable
-Telemetry
-CT Head: 1. Mild asymmetry of decreased attenuation in the frontal lobe on the left compared to the right, age indeterminate. While this could certainly represent an area of previous or chronic infarct, MRI would be much more sensitive in this
regard.
2. No hemorrhage.
3. Moderate volume loss. Mild to moderate leukoaraiosis.
-MRI brain results noted -There is a round mass in the left frontal lobe, with signal intensity characteristics compatible with hematoma, which is likely subacute. Based on CT and MR findings, this is probably in the general timeframe of 14-28 days.
There is mild to moderate adjacent white matter edema but no significant mass effect.
Focal regions of susceptibility blooming additionally in the left frontal lobe, suggesting sclerosis from previous subarachnoid blood. In the inferior left frontal lobe, there are also some additional foci of old intraparenchymal blood in the
inferior left frontal lobe.
In the anterolateral right frontal lobe, susceptibility blooming along sulci, compatible with previous subarachnoid hemorrhage.
based on results and discussed with neurosurgery, patient can be discharged and follow-up neurology outpatient
-Neurosurgery consulted, recommendations appreciated
-Follow-up MRI likely in 6 to 8 weeks to ensure that once the blood is cleared, there is no occult lesion underneath this hemorrhage --> as per neurosurgery note
-Okay for chemical DVT prophylaxis.
-However HOLD on any therapeutic anticoagulant or antiplatelet medications
Agitation
-Patient has received Zyprexa
-Careful with Ativan -- becomes very sedated with it
-Consulted psychiatry, recommendations appreciated
-Risperidone Daily
-Use any additional medication very sparingly. Non-pharmacologic measures for orientation and calming should be used.
Elevated Creatinine -- VERONIKA vs. CKD -- RESOLVED
-Completed IV fluids Normal Saline 75 cc/hr
-Bladder scans
Type 2 Diabetes Mellitus
-Hold Metformin with elevated creatinine on admission
-Accuchecks and Insulin Sliding Scale
Hyperlipidemia
-No home medications listed
Dementia
-Speech consult
Hypothyroidism
-Continue Levothyroxine
DVT Prophylaxis: Lovenox
discussed with CM plan for SNF at time of dc
Anticipated Discharge: 24 - 48 hours
Subjective/Interval History
-
Date of Service: October 22, 2023
Mentation ~same
Objective Data
-
Vital Signs:
Vital Signs
Temp Pulse Resp BP Pulse Ox
97.4 F 63 16 150/95 97
10/22/23 07:25 10/22/23 07:25 10/22/23 07:25 10/22/23 07:25 10/22/23 13:16
I&O
10/21/23 10/22/23 10/23/23
06:59 06:59 06:59
Intake Total 730 / 730 360 / 360
Balance 730 / 730 360 / 360
Review of Systems
-
Unable to obtain full review of systems at this time due to: Dementia
History Source: Coordinated Provider
Constitutional: Denies Fever
EENT: Reports No Symptoms Reported
Respiratory: Reports No Symptoms
Cardiac: Reports No Symptoms
Abdomen/GI: Reports No Symptoms
Physical Exam
-
General: Well Developed, Well Nourished and No Apparent Distress
HEENT: Normocephalic, Atraumatic and Moist Mucous Membranes
Respiratory: Clear to Auscultation; Negative Wheezes, Rales or Rhonchi
Cardiac: Regular Rhythm and S1/S2
GI: Soft, Nontender and Nondistended
Musculoskeletal: No Clubbing, No Cyanosis and No Edema
Neuro: Awake and Alert; Negative Oriented
[2023-10-22 15:20] VITALS: BP 124/61
[2023-10-22 16:55] LABS: Glucose - Point of Care 107 mg/dl (70-99)
--- NOTE | 2023-10-22 16:56 | CM ---
Alice continues with aggitation at times; is not able to participate much in therapy and 1:1 currently.
Several facilities have offered a bed.
VM left for Isa at [facility] to collaborate regarding discharge plans.
[2023-10-22] MEDS: LOVENOX SC (17:32)
[2023-10-22] MEDS: RISPERDAL 0.25 MG PO (17:32)
[2023-10-22] MEDS: DESENEX/MITRAZOL/ZEASORB 1 APPLIC TOPICAL (21:22)
[2023-10-22 21:46] LABS: Glucose - Point of Care 138 mg/dl (70-99)
[2023-10-22 23:55] VITALS: BP 118/81
[2023-10-23] MEDS: SYNTHROID 75 MCG PO (06:06)
[2023-10-23 07:30] VITALS: BP 106/48; BP 108/39; BP 92/39; PULSE 55; PULSE 66; PULSE 98
[2023-10-23 07:35] VITALS: BP 108/39
[2023-10-23 07:38] LABS: Glucose - Point of Care 142 mg/dl (70-99)
--- NOTE | 2023-10-23 09:06 | CM ---
Isa from [facility] ([phone]) returned my call this AM. I advised Isa of concern for Mr. Hdez who has been driving into the hospital, but has mentioned poor eyesight. Isa will discuss with her roofing plant supervisor.
Per Isa she believes Alice and her have a son who has not been involved in their lives. She is trying to get more information on this.
I advised Isa of concern for Mr. Hdez who has been driving into the hospital, but has mentioned poor eyesight. Isa will discuss with her roofing plant supervisor.
[facility] has offered a bed, and possibly the other local facilities in their network ([facility], [facility], [facility]). Currently Alice is on 1:1 supervision and placement cannot be coordinated until she is able to be without
direct supervision and without a med-sitter.
Case discussed with Karen Graham. Will continue to follow.
[2023-10-23] MEDS: DESENEX/MITRAZOL/ZEASORB TOPICAL (09:56)
--- NOTE | 2023-10-23 10:59 | PN.CDI ---
CDI
- -
CDI:
Physician Documentation Request
Admit Date: 10/18/23 09:30
Dear Doctor John
Patient presented to ED after 'multiple falls at home. she has been dealing with dementia for many years'
Hospitalist progress notes include a diagnosis of 'Left frontal lesion with surrounding gradient-echo hypointensity suggestive of subacute hemorrhage
MRI brain results noted There is a round mass in the left frontal lobe, with signal intensity characteristics compatible with hematoma, which is likely subacute....
Follow-up MRI likely in 6 to 8 weeks to ensure that once the blood is cleared, there is no occult lesion underneath this hemorrhage'
Please provide further specificity regarding the most likely cause of subacute hemorrhage you are evaluating, treating or monitoring.
Cause
Traumatic
Nontraumatic
Other
Use of terms such as suspected, likely, concern for, or probable (associated with a specific diagnosis that is being evaluated, monitored, or treated as if it exists) are acceptable and can be coded in the inpatient setting, when documented at the
time of discharge.
Thank you,
Maura Pagan RN, BSN
CDI Specialist
tiger text
Please use your independent medical judgment in providing your response.
[2023-10-23 12:45] LABS: Glucose - Point of Care 122 mg/dl (70-99)
[2023-10-23 15:05] VITALS: BP 127/67
[2023-10-23 16:58] LABS: Glucose - Point of Care 150 mg/dl (70-99)
[2023-10-23] MEDS: RISPERDAL 0.25 MG PO (17:12)
[2023-10-23] MEDS: LOVENOX 40 MG SC (17:12)
--- NOTE | 2023-10-23 18:12 | W.PN.HOSP.TC ---
Today's Communication/Plan
-
reviewed with CM
Assessment / Plan
Assessment / Plan

Assessment/Plan
Multiple Falls at Home
Left frontal lesion with surrounding gradient-echo hypointensity suggestive of subacute hemorrhage
Concern for previous intracerebral hemorrhage
-Vitamin B12 WNL
-TSH 8.74
-Orthostatic vital signs when feasible
-Echocardiogram unremarkable
-Telemetry
-CT Head: 1. Mild asymmetry of decreased attenuation in the frontal lobe on the left compared to the right, age indeterminate. While this could certainly represent an area of previous or chronic infarct, MRI would be much more sensitive in this
regard.
2. No hemorrhage.
3. Moderate volume loss. Mild to moderate leukoaraiosis.
-MRI brain results noted -There is a round mass in the left frontal lobe, with signal intensity characteristics compatible with hematoma, which is likely subacute. Based on CT and MR findings, this is probably in the general timeframe of 14-28 days.
There is mild to moderate adjacent white matter edema but no significant mass effect.
Focal regions of susceptibility blooming additionally in the left frontal lobe, suggesting sclerosis from previous subarachnoid blood. In the inferior left frontal lobe, there are also some additional foci of old intraparenchymal blood in the
inferior left frontal lobe.
In the anterolateral right frontal lobe, susceptibility blooming along sulci, compatible with previous subarachnoid hemorrhage.
based on results and discussed with neurosurgery, patient can be discharged and follow-up neurology outpatient
-Neurosurgery consulted, recommendations appreciated
-Follow-up MRI likely in 6 to 8 weeks to ensure that once the blood is cleared, there is no occult lesion underneath this hemorrhage --> as per neurosurgery note
-Okay for chemical DVT prophylaxis.
-However HOLD on any therapeutic anticoagulant or antiplatelet medications
Most likely hematomas noted on MRI are traumatic related to recurrent falls, though unable to know for certainty
Agitation
-Patient has received Zyprexa
-Careful with Ativan -- becomes very sedated with it
-Consulted psychiatry, recommendations appreciated
-Risperidone Daily
-Use any additional medication very sparingly. Non-pharmacologic measures for orientation and calming should be used.
Elevated Creatinine -- VERONIKA vs. CKD -- RESOLVED
-Completed IV fluids Normal Saline 75 cc/hr
-Bladder scans
Type 2 Diabetes Mellitus
-Hold Metformin with elevated creatinine on admission, Creat was nl on last lab check, though with glu in 107-150 range may not benefit from resumption of Metformin
-Accuchecks and Insulin Sliding Scale
Hyperlipidemia
-No home medications listed
Dementia
-Speech consult
Hypothyroidism
-Continue Levothyroxine
DVT Prophylaxis: Lovenox
discussed with CM plan for SNF at time of dc
recheck labs
Anticipated Discharge: 24 - 48 hours
Subjective/Interval History
-
Date of Service: October 23, 2023
Pt appears comfortable
Objective Data
-
Vital Signs:
Vital Signs
Temp Pulse Resp BP Pulse Ox
97.6 F 70 18 127/67 98
10/23/23 15:05 10/23/23 15:05 10/23/23 15:05 10/23/23 15:05 10/23/23 15:05
I&O
10/22/23 10/23/23 10/24/23
06:59 06:59 06:59
Intake Total 360 / 360 600 / 600 600 / 600
Balance 360 / 360 600 / 600 600 / 600
Review of Systems
-
Unable to obtain full review of systems at this time due to: Dementia
History Source: Coordinated Provider
Constitutional: Denies Fever
EENT: Reports No Symptoms Reported
Respiratory: Reports No Symptoms
Cardiac: Reports No Symptoms
Abdomen/GI: Reports No Symptoms
Physical Exam
-
General: Well Developed, Well Nourished and No Apparent Distress
HEENT: Normocephalic, Atraumatic and Moist Mucous Membranes
Respiratory: Clear to Auscultation; Negative Wheezes, Rales or Rhonchi
Cardiac: Regular Rhythm and S1/S2
GI: Soft, Nontender and Nondistended
Musculoskeletal: No Clubbing, No Cyanosis and No Edema
Neuro: Awake and Alert; Negative Oriented
[2023-10-23] MEDS: DESENEX/MITRAZOL/ZEASORB 1 APPLIC TOPICAL (20:15)
[2023-10-23 21:16] LABS: Glucose - Point of Care 200 mg/dl (70-99)
[2023-10-23 23:30] VITALS: BP 105/46
[2023-10-24] MEDS: SYNTHROID 75 MCG PO (06:02)
[2023-10-24 07:30] LABS: % Basophils 0.7 % (0-2); % Eosinophils 1.2 % (0-6); % Immature Granulocytes 0.4 % (0-0.5); % Lymphocytes 36.6 % (20.5-51.1); % Monocytes 10.2 % (1.7-9.3); % Neutrophils 50.9 % (42.2-75.2); Absolute Basophils 0.1 10^3/uL (0-0.2); Absolute Eosinophils 0.1 10^3/uL (0-0.7); Absolute Lymphocytes 2.7 10^3/uL (1.2-3.4); Absolute Monocytes 0.8 10^3/uL (0.1-0.6); Absolute Neutrophils 3.8 10^3/uL (1.4-6.5); Hematocrit 42.8 % (37.0-47.0); Hemoglobin 14.3 g/dL (12.0-16.0); Mean Corp Hgb Conc. 33.4 g/dL (33.0-37.0); Mean Corpuscular Volume 89.7 fL (81.0-99.0); Mean Platelet Volume 10.9 fL (7.4-10.4); Nucleated Red Blood Cells % 0 %; Platelet Count 244 10^3/uL (130-400); Red Blood Cell Count 4.77 10^6/uL (4.20-5.40); Red Cell Dist. Width 13.5 % (11.5-14.5); White Blood Cell Count 7.5 10^3/uL (4.8-10.8)
[2023-10-24 07:59] LABS: ALT (SGPT) 24 U/L (0-35); AST (SGOT) 29 U/L (14-36); Albumin 3.4 g/dl (3.5-5.0); Alkaline Phosphatase 84 U/L (38-126); Blood Urea Nitrogen 21 mg/dl (7-17); Calcium 9.8 mg/dl (8.4-10.2); Carbon Dioxide 28 mmol/L (22-30); Chloride 100 mmol/L (98-107); Glucose 155 mg/dl (70-99); Potassium 4.1 mmol/L (3.5-5.1); Sodium 136 mmol/L (135-145); Total Bilirubin 0.7 mg/dl (0.2-1.3); Total Protein 6.1 g/dl (6.3-8.2); eGFR > 60.00
[2023-10-24] MEDS: DESENEX/MITRAZOL/ZEASORB TOPICAL (08:29)
[2023-10-24 08:38] VITALS: BP 126/51
[2023-10-24 08:59] LABS: Glucose - Point of Care 149 mg/dl (70-99)
[2023-10-24 13:13] LABS: Glucose - Point of Care 188 mg/dl (70-99)
--- NOTE | 2023-10-24 15:04 | W.PN.HOSP.TC ---
Today's Communication/Plan
-
await disposition
Assessment / Plan
Assessment / Plan

Assessment/Plan
Multiple Falls at Home
Left frontal lesion with surrounding gradient-echo hypointensity suggestive of subacute hemorrhage
Concern for previous intracerebral hemorrhage
-Vitamin B12 WNL
-TSH 8.74
-Orthostatic vital signs when feasible
-Echocardiogram unremarkable
-Telemetry
-CT Head: 1. Mild asymmetry of decreased attenuation in the frontal lobe on the left compared to the right, age indeterminate. While this could certainly represent an area of previous or chronic infarct, MRI would be much more sensitive in this
regard.
2. No hemorrhage.
3. Moderate volume loss. Mild to moderate leukoaraiosis.
-MRI brain results noted -There is a round mass in the left frontal lobe, with signal intensity characteristics compatible with hematoma, which is likely subacute. Based on CT and MR findings, this is probably in the general timeframe of 14-28 days.
There is mild to moderate adjacent white matter edema but no significant mass effect.
Focal regions of susceptibility blooming additionally in the left frontal lobe, suggesting sclerosis from previous subarachnoid blood. In the inferior left frontal lobe, there are also some additional foci of old intraparenchymal blood in the
inferior left frontal lobe.
In the anterolateral right frontal lobe, susceptibility blooming along sulci, compatible with previous subarachnoid hemorrhage.
based on results and discussed with neurosurgery, patient can be discharged and follow-up neurology outpatient
-Neurosurgery consulted, recommendations appreciated
-Follow-up MRI likely in 6 to 8 weeks to ensure that once the blood is cleared, there is no occult lesion underneath this hemorrhage --> as per neurosurgery note
-Okay for chemical DVT prophylaxis.
-However HOLD on any therapeutic anticoagulant or antiplatelet medications
Most likely hematomas noted on MRI are traumatic related to recurrent falls, though unable to know for certainty
Agitation
-Patient has received Zyprexa
-Careful with Ativan -- becomes very sedated with it
-Consulted psychiatry, recommendations appreciated
-Risperidone Daily
-Use any additional medication very sparingly. Non-pharmacologic measures for orientation and calming should be used.
Elevated Creatinine -- VERONIKA vs. CKD -- RESOLVED
BUN/Creat 21/0.9
-Completed IV fluids Normal Saline 75 cc/hr
-Bladder scans
Type 2 Diabetes Mellitus
-Hold Metformin with elevated creatinine on admission, Creat was nl on last lab check, will resume Metformin
-dc Accuchecks and Insulin Sliding Scale
Hyperlipidemia
-No home medications listed
Dementia
-Speech consult
Hypothyroidism
-Continue Levothyroxine
DVT Prophylaxis: Lovenox
discussed with CM plan for SNF at time of dc
discussed with nursing, pt remains 1:1, though is calm and as per aide in room no intervention over past 24 hrs. Would consider stopping 1:1, requested nursing evaluation as to whether this would be feasible
Anticipated Discharge: 24 - 48 hours
Subjective/Interval History
-
Date of Service: October 24, 2023
Calm at present, no distress
Objective Data
-
Labs:
Laboratory Results
10/24/23
06:43
WBC 7.5
Hgb 14.3
Hct 42.8
Plt Count 244
Sodium 136
Potassium 4.1
Chloride 100
Carbon Dioxide 28
BUN 21 H
Creatinine 0.9
Glucose 155 H
Calcium 9.8
Total Bilirubin 0.7
AST 29
ALT 24
Alkaline Phosphatase 84
Vital Signs:
Vital Signs
Temp Pulse Resp BP Pulse Ox
98.5 F 66 16 126/51 100
10/24/23 08:38 10/24/23 08:38 10/24/23 08:38 10/24/23 08:38 10/24/23 13:10
I&O
10/23/23 10/24/23 10/25/23
06:59 06:59 06:59
Intake Total 600 / 600 600 / 600
Balance 600 / 600 600 / 600
Review of Systems
-
Unable to obtain full review of systems at this time due to: Dementia
History Source: Coordinated Provider
Constitutional: Denies Fever
EENT: Reports No Symptoms Reported
Respiratory: Reports No Symptoms
Cardiac: Reports No Symptoms
Abdomen/GI: Reports No Symptoms
Physical Exam
-
General: Well Developed, Well Nourished and No Apparent Distress
HEENT: Normocephalic, Atraumatic and Moist Mucous Membranes
Respiratory: Clear to Auscultation; Negative Wheezes, Rales or Rhonchi
Cardiac: Regular Rhythm and S1/S2
GI: Soft, Nontender and Nondistended
Musculoskeletal: No Clubbing, No Cyanosis and No Edema
Neuro: Awake and Alert; Negative Oriented
[2023-10-24 15:05] VITALS: BP 105/66
[2023-10-24] MEDS: RISPERDAL 0.25 MG PO (17:00)
[2023-10-24] MEDS: LOVENOX 40 MG SC (17:00)
--- NOTE | 2023-10-24 17:47 | CM ---
Alice has been calm and aggitation has been greatly reduced with medication. 1:1 is removed.
Call to Sherie with [facility] to request potential transfer to available facility (previously had been offered a bed at [facility]).
Await response.
[2023-10-24 21:22] LABS: Glucose - Point of Care 167 mg/dl (70-99)
[2023-10-24] MEDS: DESENEX/MITRAZOL/ZEASORB 1 APPLIC TOPICAL (21:26)
[2023-10-24 23:58] VITALS: BP 121/46
[2023-10-25] MEDS: SYNTHROID 75 MCG PO (05:25)
[2023-10-25 07:30] VITALS: BP 114/76; BP 117/51; PULSE 66; PULSE 69
[2023-10-25 07:30] LABS: Glucose - Point of Care 159 mg/dl (70-99)
[2023-10-25] MEDS: DESENEX/MITRAZOL/ZEASORB 1 APPLIC TOPICAL ×2 (08:18→19:58)
--- NOTE | 2023-10-25 10:15 | PN.CDI ---
CDI
- -
CDI:
Physician Documentation Request
Admit Date: 10/18/23 09:30
Dear Doctor John,
Patient admitted after multiple falls at home, subacute hemorrhage and concern for previous intracerebral hemorrhage.
10/23 progress note states:
Laboratory Tests
10/16/23 10/17/23 10/18/23
13:33 04:22 07:11
Creatinine 1.2 H 1.0 1.0
eGFR 49.00 > 60.00 > 60.00
10/19/23 10/24/23
05:55 06:43
Creatinine 0.9 0.9
eGFR > 60.00 > 60.00
After careful study, please clarify which of the following accurately represents the patient's renal status:
____ - Acute kidney injury
____ - CKD, please provide stage
____ - VERONIKA on CKD please provide stage
____ - VERONIKA/CKD ruled out
____ - Other
Criteria for VERONIKA*
1 Increase in serum creatinine by > or = to 0.3 mg/dL (> or = to 26.5 micromol/L) within 48 hours, OR
2 Increase in serum creatinine to > or = to 1.5 times baseline, which is known or presumed to have occurred within 7 days, OR
3 Urine volume < 0.5 nL/kg/hour for six hours
Stages of Chronic Kidney Disease*
Level Description GFR
G1 Normal or High >90
G2 Mildly decreased 60-89
G3a Mildly to moderately decreased 45-59
G3b Moderately to severely decreased 30-44
G4 Severely decreased 15-29
G5 Kidney failure <15
Use of terms such as suspected, likely, concern for, or probable (associated with a specific diagnosis that is being evaluated, monitored, or treated as if it exists) are acceptable and can be coded in the inpatient setting, when documented at the
time of discharge.
Thank you,
Maura Pagan RN, BSN
CDI Specialist
tiger text
Please use your independent medical judgment in providing your response.
*Source: Kidney Disease: Improving Global Outcomes (KDIGO) 2012
[2023-10-25 13:07] LABS: Glucose - Point of Care 206 mg/dl (70-99)
--- NOTE | 2023-10-25 14:23 | W.PN.HOSP.TC ---
Today's Communication/Plan
-
await dispo
Assessment / Plan
Assessment / Plan

Assessment/Plan
Multiple Falls at Home
Left frontal lesion with surrounding gradient-echo hypointensity suggestive of subacute hemorrhage
Concern for previous intracerebral hemorrhage
-Vitamin B12 WNL
-TSH 8.74
-Orthostatic vital signs when feasible
-Echocardiogram unremarkable
-Telemetry
-CT Head: 1. Mild asymmetry of decreased attenuation in the frontal lobe on the left compared to the right, age indeterminate. While this could certainly represent an area of previous or chronic infarct, MRI would be much more sensitive in this
regard.
2. No hemorrhage.
3. Moderate volume loss. Mild to moderate leukoaraiosis.
-MRI brain results noted -There is a round mass in the left frontal lobe, with signal intensity characteristics compatible with hematoma, which is likely subacute. Based on CT and MR findings, this is probably in the general timeframe of 14-28 days.
There is mild to moderate adjacent white matter edema but no significant mass effect.
Focal regions of susceptibility blooming additionally in the left frontal lobe, suggesting sclerosis from previous subarachnoid blood. In the inferior left frontal lobe, there are also some additional foci of old intraparenchymal blood in the
inferior left frontal lobe.
In the anterolateral right frontal lobe, susceptibility blooming along sulci, compatible with previous subarachnoid hemorrhage.
based on results and discussed with neurosurgery, patient can be discharged and follow-up neurology outpatient
-Neurosurgery consulted, recommendations appreciated
-Follow-up MRI likely in 6 to 8 weeks to ensure that once the blood is cleared, there is no occult lesion underneath this hemorrhage --> as per neurosurgery note
-Okay for chemical DVT prophylaxis.
-However HOLD on any therapeutic anticoagulant or antiplatelet medications
Most likely hematomas noted on MRI are traumatic related to recurrent falls, though unable to know for certainty
VERONIKA
most likely from dehydration, now fully resolved
Creat back to baseline, was 1.2 now back to 0.9
resolved
Agitation
better, pt currently calm
-Patient has received Zyprexa
-Careful with Ativan -- becomes very sedated with it
-Consulted psychiatry, recommendations appreciated
-Risperidone 0.25 mg Daily
-Use any additional medication very sparingly. Non-pharmacologic measures for orientation and calming should be used.
-Completed IV fluids Normal Saline 75 cc/hr
-Bladder scans
Type 2 Diabetes Mellitus
-Held Metformin with elevated creatinine on admission, Creat was nl on last lab check, will resume Metformin
-dc Accuchecks and Insulin Sliding Scale
Hyperlipidemia
Dementia
-Speech consult
Hypothyroidism
-Continue Levothyroxine
DVT Prophylaxis: Lovenox
discussed with CM plan for SNF at time of dc
discussed with nursing, pt now off 1:1, though is calm and as per aide in room no intervention over past 24 hrs. Await dispo
Anticipated Discharge: 24 - 48 hours
Subjective/Interval History
-
Date of Service: October 25, 2023
calm at present
Objective Data
-
Vital Signs:
Vital Signs
Temp Pulse Resp BP Pulse Ox
98.4 F 64 16 114/76 100
10/25/23 07:30 10/25/23 07:30 10/25/23 07:30 10/25/23 07:30 10/25/23 08:00
I&O
10/24/23 10/25/23 10/26/23
06:59 06:59 06:59
Intake Total 600 / 600 600 / 600 0 / 0
Balance 600 / 600 600 / 600 0 / 0
Review of Systems
-
Unable to obtain full review of systems at this time due to: Dementia
History Source: Coordinated Provider
Constitutional: Denies Fever
EENT: Reports No Symptoms Reported
Respiratory: Reports No Symptoms
Cardiac: Reports No Symptoms
Abdomen/GI: Reports No Symptoms
Physical Exam
-
General: Well Developed, Well Nourished and No Apparent Distress
HEENT: Normocephalic, Atraumatic and Moist Mucous Membranes
Respiratory: Clear to Auscultation; Negative Wheezes, Rales or Rhonchi
Cardiac: Regular Rhythm and S1/S2
GI: Soft, Nontender and Nondistended
Musculoskeletal: No Clubbing, No Cyanosis and No Edema
Neuro: Awake and Alert; Negative Oriented
[2023-10-25 15:27] VITALS: BP 97/64
--- NOTE | 2023-10-25 16:21 | CM ---
Alice has been cleared for discharge to SNF today and has been accepted for transfer to [facility]. I attempted to notify Celsa
Juanita at [facility] approved 5 days SNF level 1 10/24-10/30/2023; auth#[id number]. Updates to be called to [phone]. Ambulance authorization [id number] for [facility].
VM message left for neighbor Celsa Acosta who lives on [address] [place] [address]. Her phone number is [phone].
I reached Celsa at the [facility] residence and was able to update Mr. Hdez at the same time about the transfer plans. Both are agreeable.
Report to [phone]
[2023-10-25 18:05] LABS: Glucose - Point of Care 115 mg/dl (70-99)
[2023-10-25] MEDS: LOVENOX 40 MG SC (18:11)
[2023-10-25] MEDS: RISPERDAL 0.25 MG PO (18:12)
[2023-10-25] MEDS: GLUCOPHAGE 500 MG PO (18:12)
--- NOTE | 2023-10-25 19:53 | PTCARENOTE ---
Pt was for discharge to [facility] this evening. 171 Attempted to call report to [facility]. Staff stated ' that patient was not on the admissions list. Aaron texted Destiney from case management. Apparently paperwork was delay reaching the
SNF. Recalled [facility] at 181. 'Staff again stated that patient was not on their admission list.' Ambulance Crew arrived at 1830 to pick patient up. Transport cancelled. 190 received a call from [facility]'s [employer]. He 'stated that
administration did not communicate that patient was coming as a admission'. He said he just received the pt on admission list'. Spoke with Dr. Lopez. Decision was made that patient will be transferred in am to [facility].
[2023-10-25 23:37] VITALS: BP 121/56
[2023-10-26] MEDS: SYNTHROID 75 MCG PO (05:51)
--- NOTE | 2023-10-26 07:59 | W.PN.HOSP.TC ---
Addendum entered and electronically signed by Izaiah Lopez MD 10/26/23 08:23:
attempted once again, this morning, to reach , went to , did not leave message
Original Note:
Today's Communication/Plan
-
dc to SNF
Assessment / Plan
Assessment / Plan

Assessment/Plan
Multiple Falls at Home
Left frontal lesion with surrounding gradient-echo hypointensity suggestive of subacute hemorrhage
Concern for previous intracerebral hemorrhage
-Vitamin B12 WNL
-TSH 8.74
-Orthostatic vital signs when feasible
-Echocardiogram unremarkable
-Telemetry
-CT Head: 1. Mild asymmetry of decreased attenuation in the frontal lobe on the left compared to the right, age indeterminate. While this could certainly represent an area of previous or chronic infarct, MRI would be much more sensitive in this
regard.
2. No hemorrhage.
3. Moderate volume loss. Mild to moderate leukoaraiosis.
-MRI brain results noted -There is a round mass in the left frontal lobe, with signal intensity characteristics compatible with hematoma, which is likely subacute. Based on CT and MR findings, this is probably in the general timeframe of 14-28 days.
There is mild to moderate adjacent white matter edema but no significant mass effect.
Focal regions of susceptibility blooming additionally in the left frontal lobe, suggesting sclerosis from previous subarachnoid blood. In the inferior left frontal lobe, there are also some additional foci of old intraparenchymal blood in the
inferior left frontal lobe.
In the anterolateral right frontal lobe, susceptibility blooming along sulci, compatible with previous subarachnoid hemorrhage.
based on results and discussed with neurosurgery, patient can be discharged and follow-up neurology outpatient
-Neurosurgery consulted, recommendations appreciated
-Follow-up MRI likely in 6 to 8 weeks to ensure that once the blood is cleared, there is no occult lesion underneath this hemorrhage --> as per neurosurgery note
-Okay for chemical DVT prophylaxis.
-However HOLD on any therapeutic anticoagulant or antiplatelet medications
Most likely hematomas noted on MRI are traumatic related to recurrent falls, though unable to know for certainty
VERONIKA
most likely from dehydration, now fully resolved
Creat back to baseline, was 1.2 now back to 0.9
resolved
Agitation
better, pt currently calm
-Patient has received Zyprexa
-Careful with Ativan -- becomes very sedated with it
-Consulted psychiatry, recommendations appreciated
-Risperidone 0.25 mg Daily
-Use any additional medication very sparingly. Non-pharmacologic measures for orientation and calming should be used.
-Completed IV fluids Normal Saline 75 cc/hr
-Bladder scans
Type 2 Diabetes Mellitus
-Held Metformin with elevated creatinine on admission, Creat was nl on last lab check, will resume Metformin
-dc Accuchecks and Insulin Sliding Scale
Hyperlipidemia
Dementia
-Speech consult
Hypothyroidism
-Continue Levothyroxine
DVT Prophylaxis: Lovenox
discussed with CM plan for SNF at time of dc
discussed with nursing, pt now off 1:1, though is calm and as per aide in room no intervention over past 24 hrs. Await dispo
Anticipated Discharge: Today
Subjective/Interval History
-
Date of Service: October 26, 2023
Appears calm
Objective Data
-
Vital Signs:
Vital Signs
Temp Pulse Resp BP Pulse Ox
98 F 61 16 121/56 100
10/25/23 15:27 10/25/23 23:37 10/25/23 23:37 10/25/23 23:37 10/25/23 23:37
I&O
10/25/23 10/26/23 10/27/23
06:59 06:59 06:59
Intake Total 600 / 600 360 / 360
Balance 600 / 600 360 / 360
Review of Systems
-
Unable to obtain full review of systems at this time due to: Dementia
History Source: Coordinated Provider
Constitutional: Denies Fever
EENT: Reports No Symptoms Reported
Respiratory: Reports No Symptoms
Cardiac: Reports No Symptoms
Abdomen/GI: Reports No Symptoms
Physical Exam
-
General: Well Developed, Well Nourished and No Apparent Distress
HEENT: Normocephalic, Atraumatic and Moist Mucous Membranes
Respiratory: Clear to Auscultation; Negative Wheezes, Rales or Rhonchi
Cardiac: Regular Rhythm and S1/S2
GI: Soft, Nontender and Nondistended
Musculoskeletal: No Clubbing, No Cyanosis and No Edema
Neuro: Awake and Alert; Negative Oriented
[2023-10-26] MEDS: GLUCOPHAGE 500 MG PO (08:13)
[2023-10-26] MEDS: DESENEX/MITRAZOL/ZEASORB 1 APPLIC TOPICAL (08:14)
[2023-10-26 08:22] VITALS: BP 116/59
[2023-10-26 08:23] LABS: Glucose - Point of Care 131 mg/dl (70-99)
--- NOTE | 2023-10-26 08:23 | W.DS.TRANS ---
DC Summary - [employer] Work[employer]
-
Discharge Instructions:
Discharge Diagnosis/Procedures Ambulatory Dysfunction, Dementia
Diet Diabetic, Carb Controlled
Activity With assistance,With Walker
Driving Restrictions No driving
Bathing Restrictions None
Blood Work CBC, CMP in 2-3 weeks, Fasting Accuchecks qam
Others Tests Follow up MRI of Brain (with and without
contrast) in 2 months to evaluate area of
hematoma as per outpatient medicine
Instructions:
Stand-Alone Forms:
Changes to Home Medications: Yes
Discharge Medications:
DC Medications w/original date entered in [facility]
levothyroxine 75 mcg tablet 75 mcg PO DAILY Thyroid 10/16/23
metformin 500 mg tablet 500 mg PO BIDWMEAL Diabetes 10/16/23
bisacodyl 10 mg rectal suppository 10 mg NH [id number] PRN constipation #0 ea 10/26/23
miconazole nitrate 2 % topical powder (Miconazorb AF) 1 applic topical BID Skin issues #0 grams 10/26/23
polyethylene glycol 3350 17 gram oral powder packet (HealthyLax) 17 g PO DAILYPRN PRN constipation #0 ea 10/26/23
risperidone 0.25 mg tablet 0.25 mg PO DAILY@1800 #30 tabs 10/26/23
Home Medication Changes
Resperidone daily has been added
bowel preps have been added
Miconazole has been added
Pending Results: No
--- NOTE | 2023-10-26 09:59 | CM ---
IB approved 5 days SNF level 1 10/24-10/30/2023; auth#[id number]. Updates to be called to [phone]. Ambulance authorization [id number] for [facility].
Above information given to Sherie via VM
Pt transferred to [facility] via ambulance .
[facility]
Report to [phone]

PLAN To [facility] Pt
== END 2023-10-26 09:24 | DRG 86 ==
LOC: 4 EAST ACU 09:30
PROVIDERS: Physician Assistant; ADMITTING PHYSICIAN Hospitalist; ATTENDING PHYSICIAN Internal Medicine; EMERGENCY PHYSICIAN Emergency Medicine; OTHER PHYSICIAN Neurological Surgery; OTHER PHYSICIAN Psychiatry & Neurology Psychiatry
DX: S06.6X0A Traumatic subarachnoid hemorrhage without loss of consciousness, initial encounter (principal); F03.C11 Unspecified dementia, severe, with agitation; F03.C18 Unspecified dementia, severe, with other behavioral disturbance; N17.9 Acute kidney failure, unspecified; R29.6 Repeated falls; E78.5 Hyperlipidemia, unspecified; E11.9 Type 2 diabetes mellitus without complications; G93.89 Other specified disorders of brain; E03.9 Hypothyroidism, unspecified; M54.2 Cervicalgia; S00.83XA Contusion of other part of head, initial encounter; Z74.2 Need for assistance at home and no other household member able to render care; W01.10XA Fall on same level from slipping, tripping and stumbling with subsequent striking against unspecified object, initial encounter; Y93.9 Activity, unspecified; Y92.009 Unspecified place in unspecified non-institutional (private) residence as the place of occurrence of the external cause; Z91.81 History of falling; Z91.199 Patient's noncompliance with other medical treatment and regimen due to unspecified reason; Z79.84 Long term (current) use of oral hypoglycemic drugs; Z79.890 Hormone replacement therapy; Z91.148 Patient's other noncompliance with medication regimen for other reason; Z82.0 Family history of epilepsy and other diseases of the nervous system
CPT/HCPCS: 70450; 70551; 70553; 72125; 80048; 80053; 81003; 82607; 82962; 83735; 84443; 84484; 85025; 92523; 92526; 92610; 93005; 93306; 96360; 96361; 96372; 97530; 97535; 99285; A9575; J2358

== ENCOUNTER 2023-11-25 20:28 | Emergency (ER) | payer OTHER, SELFPAY ==
[2023-11-25 20:33] VITALS: BP 129/59
--- NOTE | 2023-11-25 20:33 | ED.GENMED ---
History of Present Illness
General
Chief Complaint: Fall
Time Seen by Provider: 11/25/23 20:33
History of Present Illness
History of Present Illness:
HPI: Patient came in by ambulance after a fall. She has advanced dementia coming in from [facility]. She was found down. She reportedly has a history of a left shoulder fracture and is currently in a sling. Patient provides no
meaningful history. There was concern for bruising near the right eyebrow.
EXAM:
GENERAL: Appears in no distress
HEENT: Moist oral mucosa
CARDIOVASCULAR: Regular rate and rhythm
PULMONARY: No respiratory distress, breathing is nonlabored, equal and clear breath sounds
ABDOMEN: Soft and nontender with no peritoneal signs
NEUROLOGIC: The patient has evidence of dementia, not oriented to month or place, strength is equal in all extremities
EXTREMITIES: Edema noted to the left shoulder with cradle sling present, there is also some edema and older appearing bruising noted to the left hand, there is excellent active range of motion to the other extremities
PYSCHIATRIC: Very limited historian, poor insight and judgment
TIME OF INITIAL ENCOUNTER: 8:30 PM
NUMBER AND COMPLEXITY OF PROBLEMS ADDRESSED AT THE ENCOUNTER
� Chronic conditions affecting care: Dementia, diabetes
� Acute Exacerbation and/or Progression of Chronic Illness: This is an acute problem
� Differential Diagnosis includes: Intracranial hemorrhage, minor head injury, contusion
AMOUNT AND/OR COMPLEXITY OF DATA TO BE REVIEWED AND ANALYZED
� I performed an independent evaluation of and my interpretation is:
EKG:
CT: CT shows no acute traumatic abnormality,
X-rays:
Laboratory Studies: Blood sugar 285
Other:
� Review of other/old records: I reviewed records, the patient was admitted here with gait dysfunction for about 9 days a month ago.
� Clinical information was obtained by an independent historian: I spoke to the nurse who spoke to EMS, I also reviewed some of the paperwork from [facility]
� Prescriptions/Medications Considered but not given:
� Further testing considered but not performed:
RISK OF COMPLICATIONS AND/OR MORBIDITY OR MORTALITY OF PATIENT MANAGEMENT
� Social determinants of health affecting care: Resides at [facility]
� Discussion with other providers:
� Escalation of care including admission/observation vs risk of discharge considered: Given patient history of dementia and the fact that she cannot provide meaningful history, CT imaging will be obtained. CT imaging obtained
and shows no acute hemorrhage. There is been resolution of prior hemorrhage seen. There is been no change in patient's clinical condition
Phy Exam
Physical Exam
Physical Exam:
See HPI
Course
Orders/Labs/Results
Orders:
Orders
11/25/23 20:39
CT Head W/o Iv Contrast Urgent
Comment:
Reason For Exam: fall advanced dementia; L frontal bleed MRI 1M ago
11/25/23 20:42
Bedside Glucose- Treatment ONCE
Abnormal Lab Results
11/25/23
20:50
POC Glucose 285 H mg/dl
(70-99)
Vital Signs
Initial and Last Documented VS:
Initial Vital Signs
Temp Pulse Resp BP Pulse Ox
98.3 F 76 22 129/59 100
11/25/23 20:33 11/25/23 20:33 11/25/23 20:33 11/25/23 20:33 11/25/23 20:33
Last Documented Vital Signs
Temp Pulse Resp BP Pulse Ox
98.3 F 58 16 118/46 100
11/25/23 20:33 11/25/23 21:15 11/25/23 21:15 11/25/23 21:00 11/25/23 20:45
*Critical Care Note
Total Time (30-74mins, 75-104mins- exclusive of procedures): Not Applicable
ED Attending Note
-
Portions of this chart may have been created with voice recognition software.� Occasional wrong word or��sound alike� substitutions may have occurred due to the inherent limitations of voice recognition software.
Discharge Plan
Departure
Patient Disposition: Home (Routine Discharge)
Date of Disposition: 11/25/23
Time of Disposition: 22:10
Patient with high blood pressure during this ER visit?: Yes
Discharge Problem:
Fall, Head injury
Instructions: Head Injury in Adults (DC)
Prescriptions:
No Action
metformin 500 mg Tablet
500 mg PO BIDWMEAL
levothyroxine 75 mcg Tablet
75 mcg PO DAILY
polyethylene glycol 3350 [HealthyLax] 17 gram Powder In Packet
17 g PO DAILYPRN PRN (Reason: constipation) Qty: 0 0RF
miconazole nitrate [Miconazorb AF] 2 % Powder
1 applic topical BID Qty: 0 0RF
risperidone 0.25 mg Tablet
0.25 mg PO DAILY@1800 Qty: 30 0RF
bisacodyl 10 mg Suppository
10 mg MT [id number] PRN (Reason: constipation) Qty: 0 0RF
Referrals:
Marta Kirby DO [Family Provider] -
Activity Restrictions/Additional Instructions:
CAT scan of the brain shows no bleeding. Blood sugar was 285. Return here if worse.
Interventions
Interventions:
*Risk Screen - Suicide Last Done: 11/25/23 20:33
*Neglect/Abuse Screening Last Done: 11/25/23 20:33
ED- Fall Risk Assessment Last Done: 11/25/23 20:36
ED-Musculoskeletal Assessment Last Done: 11/25/23 20:36
ED- Neurological Assessment Last Done: 11/25/23 20:36
ED-Skin Assessment Last Done: 11/25/23 20:36
Discharge Date and Time
Print Language: CHILEAN
[2023-11-25 20:51] LABS: Glucose - Point of Care 285 mg/dl (70-99)
[2023-11-25 21:00] VITALS: BP 118/46
== END 2023-11-26 06:30 | disposition home or self-care (01) ==
LOC: EMR 20:28
PROVIDERS: EMERGENCY PHYSICIAN Emergency Medicine; FAMILY PHYSICIAN Family Medicine
DX: S09.90XA Unspecified injury of head, initial encounter (principal); S00.11XA Contusion of right eyelid and periocular area, initial encounter; S60.222A Contusion of left hand, initial encounter; R60.0 Localized edema; W19.XXXA Unspecified fall, initial encounter; R03.0 Elevated blood-pressure reading, without diagnosis of hypertension; F03.90 Unspecified dementia, unspecified severity, without behavioral disturbance, psychotic disturbance, mood disturbance, and anxiety
CPT/HCPCS: 99284; 70450; 82962